=== PATIENT | female | born 1955 | race Caucasian/White ===

== ENCOUNTER 2018-06-24 10:40 | Outpatient (CLI) ==
[2013-12-31 18:29] VITALS: BMI 30.2
== END 2018-06-24 10:41 | disposition home or self-care (01) ==
LOC: LAB 10:40
PROVIDERS: ATTEND Nurse Practitioner Family
DX: E55.9 Vitamin D deficiency, unspecified (principal); M81.0 Age-related osteoporosis without current pathological fracture
CPT/HCPCS: 36415; 82306; 82310; 83735; 84100

== ENCOUNTER 2019-07-04 17:58 | Inpatient (IN) ==
--- NOTE | 2019-07-04 18:44 | ED.PDOC ---
General ED Provider: Dr. JONO SANTOS Chief Complaint: Altered Mental Status Stated Complaint: Altered mental status. Brought in by EMS. Hx given by family at scene patient was found in this altered state this afternoon. Was treated and released on 07/01 in the ER. At that time complained of headache back pain, tremors and states when she talked states did not know how to finish her sentences. Reported a recent fall without known injury. Onset of symptoms 06/23/19. Today patient would not answer her door and family broke in and found her in a state of being non verbal, minimally responsive. Assumes she has take prescribed meds (Prescribed Baclofen on . All meds noted. During exam-non verbal. kept eyes closed and Lt forearm flexed and hand tightly closed Fails to follow commands Time Seen by Physician: 18:20 (Advised of her arrival and symp) Mode of Arrival: Stretcher Information Source: Family and EMT Exam Limitations: Clinical condition and Altered mental status Primary Care Provider: Unknown Nursing and Triage Documentation Reviewed and Agree: Yes Does patient meet sepsis criteria?: No System Inflammatory Response Syndrome: Not Applicable Sepsis Protocol: For patient's 13 years and over: Temp is 96.8 and below OR 101 and greater Pulse >90 BPM Resp >20/minute Acutely Altered Mental Status Are patient's symptoms suggestive of a new infection, such as: -Pneumonia -Skin, Soft Tissue -Endocarditis -UTI -Bone, Joint Infection -Implantable Device -Acute Abdominal Infection -Wound Infection -Meningitis -Blood Stream Catheter Infection -Unknown Neurological Complaint Exam Altered Mental Status Complaint/Exam Current Mental Status: Unresponsiveness Last Known Well: 2 days Onset: Gradual Duration: 24 hrs-last seen well yesterday Symptoms Are: Still present Timing: Constant Initial Severity: Moderate Current Severity: Severe Eye Deviation Present: No Character: Reports Responsiveness and Lethargy Aggravating: Reports None Alleviating: Reports None Related History: Denies Similar episode Cardiac Risk Factors: Reports None CVA Risk Factors: Reports None Related Surgical History: Reports None Carotid Bruit Present: No Nystagmus Present: No Gag Reflex Present: No Meningeal Signs Positive: No Focal Weakness: Present None Focal Sensory Loss: Present None Gait: Unable [id number]: Abnormal right and Abnormal left Babinski Sign: Negative Right and Negative Left Signs of Injury: Present Normal findings Thrombolytics Considered: No Differential Diagnoses: Intracranial Bleed, Metabolic Disorder, Overdose, Medication reaction, Seizure, Post-Ictal, Sepsis and CVA Neurological Deficit Complaint/Exam Symptom Onset Unknown: Yes Symptom Onset Date: 07/04/19 Onset: Sudden Symptoms Are: Still present Timing: Constant Initial Severity: Moderate Current Severity: Moderate Location: Reports LUE Character: Reports Impaired speech Aggravating: Denies None, Fatigue, Stress, Hypertension and Exertion Alleviating: Reports None, Rest, OTC Meds, Heat and Ice Associated Signs and Symptoms: Reports Confusion and Responsiveness Related History: Denies Similar episode and Anticoagulant therapy CVA Risk Factors: Reports Hypertension SDH Risk Factors: Denies None, Male, Seizures, Elderly, Recent trauma, Anticoagulant use and Coagulopathy Related Surgical History: Reports None Carotid Bruit Present: No Meningeal Signs Positive: No Nystagmus Present: No Gag Reflex Present: No Signs of Trauma: No Review of Systems Review Of Systems Constitutional: Reports Weakness Eyes: Reports No symptoms Ears, Nose, Mouth, Throat: Reports No symptoms Respiratory: Reports No symptoms Cardiac: Reports No symptoms GI: Reports No symptoms : Reports No symptoms Musculoskeletal: Reports Back pain Skin: Reports No symptoms Neurological: Reports Other (altered loc) Endocrine: Reports No symptoms Hematologic/Lymphatic: Reports No symptoms All Other Systems: Reviewed and Negative [facility] Medical History (Updated 07/05/19 @ 12:08 by [email or web address]) Acute arthritis Anxiety Chronic pain disorder Dementia Depression HTN (hypertension), benign Migraine headache Previous back surgery TIA (transient ischemic attack) Tobacco dependence due to cigarettes Family History (Updated 07/05/19 @ 12:12 by [email or web address]) Mother Dementia, Onset Age: 78 Hypertension, Onset Age: 50 FATHER Unknown family medical history Social History (Updated 07/05/19 @ 12:26 by [email or web address]) Smoking and tobacco status: Current every day smoker Tobacco: How many years used: 40 Quit status: has quit before Smoking risk assessment performed: Yes Alcohol intake: former Substance use type: marijuana, opiates and other Details: has medical marijuana rx Lives independently: Yes Number of children: 1 Number of grandchildren: 2 Current occupational status: disabled Female Reproductive History Menstrual Hx Hysterectomy: No Hx Tubal Ligation: No Physical Exam Physical Exam Appearance: Reports Ill-appearing Ill-appearing: Moderate Pain Distress: None Eyes: Reports SHORTY, EOMI and Conjunctiva clear ENT: Reports Ears normal Neck: Supple Respiratory: Reports Airway patent, Breath sounds clear and Breath sounds equal Cardiovascular: Reports RRR, Pulses normal and No murmur GI/: Reports Soft, Tender (suprapubic region ) and Bowel sounds hypoactive Musculoskeletal: Reports ROM intact Skin: Reports Warm and Dry Neurological: Reports Motor intact (moves upper and lower extremities spontaneously-keeps lt arm flexed/lt hand clenched no clonus ) and Alert to pain NIH Stroke Scale 1a. Level of Consciousness: 2=Not alert, requires repeated stimulation or painful stimulation 1b. Level of Consciousness Questions: 2=Answers correctly to neither 1c. Level of Consciousness Commands: 2=Performs neither correctly 2. Best Gaze: 1=Partial gaze palsy, no forced gaze palsy 4. Facial Palsy: 0=Normal 5a. Motor Left Arm: 1=Drifts before 10 seconds arm, 5 seconds leg 5b. Motor Right Arm: 0=No drift,arm holds 90 degrees for 10 sec., leg 30 degrees for 5 sec. 6b. Motor Right Le=No drift,arm holds 90 degrees for 10 sec., leg 30 degrees for 5 sec. 8. Sensory: 1=Mild to moderate sensory loss 9. Best Language: 3=Mute, only sounds 10. Dysarthria: 2=Severe, cannot be understood 11. Extincion and Inattention: 2=Profound semi-inattention Stroke Scale Total: 16 Interpretation Radiology Interpretation Radiology Interpretation By: Radiologist Exam Interpreted: CT Scan (Head-NO acute abnormalities) Physician Notification Case Discussed Physician Notified: Dr Rae-discussed case- accepted transfer of care management Time of Notification: 19:11 Critical Care Note Critical Care Note Total Time (mins): 0 Course Course Hematology/Chemistry: 07/05/19 04:15 07/05/19 04:15 Orders, Labs, Meds: Lab Review 07/04/19 07/04/19 07/04/19 18:37 18:57 18:57 WBC 11.81 H RBC 4.55 Hgb 13.7 Hct 42.1 MCV 92.5 MCH 30.1 MCHC 32.5 RDW Coeff of Alyssa 13.7 Plt Count 282 Immature Gran % (Auto) 0.3 Neut % (Auto) 83.8 H Lymph % (Auto) 9.[address] [place] % (Auto) 5.7 Eos % (Auto) 0.2 Baso % (Auto) 0.2 Immature Gran # (Auto) 0.0 Neut # (Auto) 9.9 H Lymph # (Auto) 1.2 [place] # (Auto) 0.7 Eos # (Auto) 0.0 Baso # (Auto) 0.0 Puncture Site O2 Saturation ABG pH ABG pCO2 ABG pO2 ABG HCO3 ABG Total CO2 ABG Base Excess Rauedl Test FiO2 % Sodium 142.6 Potassium 3.75 Chloride 101.4 Carbon Dioxide 29.8 Anion Gap 15.15 BUN 19.1 H Creatinine 0.74 Estimated GFR (MDRD) 79.00 BUN/Creatinine Ratio 25.81 Glucose 117.9 H Calcium 9.91 Total Bilirubin 0.47 AST 46.5 H ALT 17.7 Alkaline Phosphatase 44.2 L Ammonia Total Protein 8.04 Albumin 4.82 Globulin 3.22 Albumin/Globulin Ratio 1.49 Urine Color Urine Clarity Urine pH Ur Specific [place] Urine Protein Urine Glucose (UA) Urine Ketones Urine Blood Urine Nitrite Urine Bilirubin Urine Urobilinogen Ur Leukocyte Esterase Urine Microscopic RBC Urine Microscopic WBC Ur Squamous Epith Cells Ur Transition Epith Cell Hyaline Casts Urine Mucus Urine Opiates Screen Ur Oxycodone Screen Urine Methadone Screen Ur Propoxyphene Screen Ur Barbiturates Screen U Tricyclic Antidepress Ur Phencyclidine Scrn Ur Amphetamine Screen U Methamphetamines Scrn U Benzodiazepines Scrn Urine Cocaine Screen U Cannabinoids Screen Influ A Molecular Assay Negative by naat Influ B Molecular Assay Negative by naat 07/04/19 07/04/19 07/04/19 18:57 19:30 19:30 WBC RBC Hgb Hct MCV MCH MCHC RDW Coeff of Alyssa Plt Count Immature Gran % (Auto) Neut % (Auto) Lymph % (Auto) [place] % (Auto) Eos % (Auto) Baso % (Auto) Immature Gran # (Auto) Neut # (Auto) Lymph # (Auto) [place] # (Auto) Eos # (Auto) Baso # (Auto) Puncture Site O2 Saturation ABG pH ABG pCO2 ABG pO2 ABG HCO3 ABG Total CO2 ABG Base Excess Rauedl Test FiO2 % Sodium Potassium Chloride Carbon Dioxide Anion Gap BUN Creatinine Estimated GFR (MDRD) BUN/Creatinine Ratio Glucose Calcium Total Bilirubin AST ALT Alkaline Phosphatase Ammonia < 8.7 L Total Protein Albumin Globulin Albumin/Globulin Ratio Urine Color Yellow Urine Clarity Clear Urine pH 6.0 Ur Specific [place] 1.020 Urine Protein Negative Urine Glucose (UA) Negative Urine Ketones Trace H Urine Blood Trace-intact H Urine Nitrite Negative Urine Bilirubin Negative Urine Urobilinogen 0.2 Ur Leukocyte Esterase Negative Urine Microscopic RBC 0-2 Urine Microscopic WBC 2-5 Ur Squamous Epith Cells Not present Ur Transition Epith Cell 0-2 Hyaline Casts 0-2 Urine Mucus Trace Urine Opiates Screen Positive H Ur Oxycodone Screen Negative Urine Methadone Screen Negative Ur Propoxyphene Screen Negative Ur Barbiturates Screen Negative U Tricyclic Antidepress Positive H Ur Phencyclidine Scrn Negative Ur Amphetamine Screen Negative U Methamphetamines Scrn Negative U Benzodiazepines Scrn Positive H Urine Cocaine Screen Negative U Cannabinoids Screen Positive H Influ A Molecular Assay Influ B Molecular Assay 07/04/19 19:30 WBC RBC Hgb Hct MCV MCH MCHC RDW Coeff of Alyssa Plt Count Immature Gran % (Auto) Neut % (Auto) Lymph % (Auto) [place] % (Auto) Eos % (Auto) Baso % (Auto) Immature Gran # (Auto) Neut # (Auto) Lymph # (Auto) [place] # (Auto) Eos # (Auto) Baso # (Auto) Puncture Site Rb O2 Saturation 97.0 ABG pH 7.442 ABG pCO2 36.4 ABG pO2 82.0 L ABG HCO3 24.8 ABG Total CO2 26 ABG Base Excess 1 Raudel Test + FiO2 % 21.0 Sodium Potassium Chloride Carbon Dioxide Anion Gap BUN Creatinine Estimated GFR (MDRD) BUN/Creatinine Ratio Glucose Calcium Total Bilirubin AST ALT Alkaline Phosphatase Ammonia Total Protein Albumin Globulin Albumin/Globulin Ratio Urine Color Urine Clarity Urine pH Ur Specific [place] Urine Protein Urine Glucose (UA) Urine Ketones Urine Blood Urine Nitrite Urine Bilirubin Urine Urobilinogen Ur Leukocyte Esterase Urine Microscopic RBC Urine Microscopic WBC Ur Squamous Epith Cells Ur Transition Epith Cell Hyaline Casts Urine Mucus Urine Opiates Screen Ur Oxycodone Screen Urine Methadone Screen Ur Propoxyphene Screen Ur Barbiturates Screen U Tricyclic Antidepress Ur Phencyclidine Scrn Ur Amphetamine Screen U Methamphetamines Scrn U Benzodiazepines Scrn Urine Cocaine Screen U Cannabinoids Screen Influ A Molecular Assay Influ B Molecular Assay Orders Category Date Time Status ADMIT PATIENT INPATIENT .TO [facility] (MONITORED BED) ADMISSION 07/04/19 20:22 Active ABG DRAW REQUEST Stat CARDIO 07/04/19 20:14 Completed EKG-(ED ONLY) Stat CARDIO 07/04/19 18:31 Completed ACTIVITY .Complete BR CARE 07/04/19 20:23 Active GIVE HS SNACK 2100 CARE 07/04/19 20:23 Active INTAKE & OUTPUT Q8HR CARE 07/04/19 20:23 Active NEUROLOGICAL CHECKS Q2HR CARE 07/04/19 20:23 Active TELEMETRY MONITORING TELE CARE 07/04/19 20:22 Active VITAL SIGNS Q2HR CARE 07/04/19 20:23 Active HS SNACK DIETARY 07/04/19 Dinner Ordered ED IV/MEDIPORT/POWERPORT .ONCE EMERGENCY 07/04/19 20:21 Active IV [ED IV/MEDIPORT/POWERPORT] .ONCE EMERGENCY 07/04/19 18:31 Active ABG Stat LAB 07/04/19 19:30 Completed AMMONIA Stat LAB 07/04/19 18:57 Completed BLOOD CULTURE (ED ONLY) Stat LAB 07/04/19 19:12 Received CBC W/ AUTO DIFF DAILY@0600 LAB 07/05/19 04:15 Completed CBC W/ AUTO DIFF DAILY@0600 LAB 07/06/19 06:00 Ordered CBC W/ AUTO DIFF Stat LAB 07/04/19 18:57 Completed CMP [COMPREHENSIVE METABOLIC PANEL] Stat LAB 07/04/19 18:57 Completed COMPREHENSIVE METABOLIC PANEL DAILY@0600 LAB 07/05/19 04:15 Completed COMPREHENSIVE METABOLIC PANEL DAILY@0600 LAB 07/06/19 06:00 Ordered FLU A & B MOLECULAR [FLU A/B MOLECULAR] Stat LAB 07/04/19 18:37 Completed UA [URINALYSIS C & S IF INDICATED] Stat LAB 07/04/19 19:30 Completed URINE DRUG SCREEN (RAPID FOR ED) [DRUG SCREEN, URINE, LAB 07/04/19 19:30 Completed RAPID] Stat 0.9 % Sodium Chloride [Saline Flush] MEDS 07/04/19 20:21 Active 1 syr IVF PRN PRN Divalproex Sodium [Depakote] MEDS 07/04/19 21:00 Discontinued 250 mg PO BID Donepezil HCl [Aricept] MEDS 07/05/19 09:00 Discontinued 10 mg PO DAILY Enoxaparin Sodium [Lovenox] MEDS 07/05/19 09:00 Discontinued 30 mg SUBCUT DAILY Omeprazole [Prilosec] MEDS 07/05/19 09:00 Discontinued 20 mg PO DAILY Prazosin HCl [Minipress] MEDS 07/04/19 21:00 Discontinued 5 mg PO BEDTIME Sertraline HCl [Zoloft] MEDS 07/05/19 09:00 Discontinued 200 mg PO DAILY Sodium Chloride 0.9% [Sodium Chloride] 1,000 ml MEDS 07/04/19 20:21 Discontinued IV 100 mls/hr Sodium Chloride 0.9% [Sodium Chloride] 1,000 ml MEDS 07/04/19 19:13 Discontinued IV ONCE RESUSCITATION STATUS Routine OTHERS 07/04/19 20:23 Ordered CHEST, 1V AP ONLY Stat RADS 07/04/19 18:[address] HEAD W/O CONTRAST Stat RADS 07/04/19 18:31 Completed Medications Generic Name Dose Route Start Last Admin Trade Name Freq PRN Reason Stop Dose Admin Acetaminophen 650 mg 07/05/19 16:44 07/05/19 17:05 Tylenol PO 650 mg Q6H PRN Administration FEVER > 100.5 Amitriptyline HCl 100 mg 07/05/19 21:00 Elavil PO BEDTIME [facility] Docusate Sodium 100 mg 07/05/19 16:30 07/05/19 17:05 Colace PO 100 mg BID ERNA Administration Duloxetine HCl 60 mg 07/06/19 09:00 Cymbalta PO DAILY [facility] Enoxaparin Sodium 40 mg 07/05/19 17:00 07/05/19 17:09 Lovenox SUBCUT Not Given DAILY [facility] Ergocalciferol 50,000 unit 07/10/19 09:00 Drisdol PO WEEKLY [facility] Hydrochlorothiazide 25 mg 07/06/19 09:00 Hydrochlorothiazide PO DAILY [facility] Potassium Chloride/Sodium Chloride 1,000 mls @ 83 mls/hr 07/05/19 08:00 07/05/19 07:35 Sodium Chloride 0.9%-Kcl 20 Meq IV 83 mls/hr .Q12H3M ERNA Administration Famotidine 20 mg/ Sodium 52 mls @ 100 mls/hr 07/05/19 17:00 07/05/19 17:06 Chloride IV 100 mls/hr Q12HR ERNA Administration Labetalol HCl 10 mg 07/05/19 15:42 Trandate IVP Q6H PRN Blood Pressure Linaclotide 145 mcg 07/06/19 08:00 Linzess PO 0800 ERNA Lisinopril 10 mg 07/06/19 09:00 Zestril PO DAILY [facility] Morphine Sulfate 1 mg 07/04/19 23:23 04/05/20 04:48 Morphine 2 Mg/Ml Syringe IVP 1 mg Q4H PRN Administration Pain Nicotine 1 patch 07/05/19 16:30 07/05/19 17:06 Nicoderm 14 Mg TD 1 patch DAILY ERNA Administration Sodium Chloride 1 syr 07/04/19 20:21 Saline Flush IVF PRN PRN To flush IV Sumatriptan Succinate 100 mg 07/05/19 11:21 Imitrex PO DAILY PRN HEADACHE Tizanidine HCl 4 mg 07/05/19 13:08 Zanaflex PO Q8H PRN MUSCLE SPASMS Discontinued Medications Generic Name Dose Route Start Last Admin Trade Name Freq PRN Reason Stop Dose Admin Diazepam 10 mg 07/05/19 05:00 07/05/19 05:07 Valium PO 10 mg Q8HR ERNA Administration Diazepam 10 mg 07/05/19 13:00 Valium PO Q8HR ERNA Divalproex Sodium 250 mg 07/04/19 21:00 07/05/19 11:25 Depakote PO Not Given BID [facility] Donepezil HCl 10 mg 07/05/19 09:00 07/05/19 11:24 Aricept PO Not Given DAILY [facility] Enoxaparin Sodium 30 mg 07/05/19 09:00 07/05/19 17:08 Lovenox SUBCUT Not Given DAILY [facility] Sodium Chloride 1,000 mls @ 125 mls/hr 07/04/19 19:13 07/04/19 21:46 Sodium Chloride IV 07/05/19 03:12 Not Given ONCE ONE Sodium Chloride 1,000 mls @ 100 mls/hr 07/04/19 20:21 07/04/19 21:47 Sodium Chloride IV 07/05/19 06:20 100 mls/hr .Q10H STA Administration Omeprazole 20 mg 07/05/19 09:00 07/05/19 17:09 Prilosec PO Not Given DAILY [facility] Prazosin HCl 5 mg 07/04/19 21:00 07/04/19 21:55 Minipress PO Not Given BEDTIME ERNA Sertraline HCl 200 mg 07/05/19 09:00 07/05/19 11:25 Zoloft PO Not Given DAILY ERNA Vital Signs: Temp Pulse Resp BP Pulse Ox 07/04/19 17:59 98.3 F 105 H 20 156/92 H 98 Discharge Plan Discharge Patient Disposition: ADMITTED INPATIENT Discharge Problem: Encephalopathy ED Provider: JONO SANTOS Condition: Fair Discharge Date/Time: 07/04/19 21:15
[2019-07-04 19:03] LABS: HEMATOCRIT 42.1 % (37.0-47.0)
--- NOTE | 2019-07-04 19:03 | CT ---
EXAM: CT head without contrast HISTORY: Altered mental status COMPARISON: None TECHNIQUE: Serial axial images of the brain were obtained from the skull base to the vertex without IV contrast. FINDINGS: The ventricles, cisterns and sulci are normal. The crespo-white matter junction is well elizabeth ntained. No midline shift or mass is identified. There is no abnormal intra or extra-axial fluid co llection. The paranasal sinuses and mastoid air cells are clear. The osseous calvarium is intact. IMPRESSION: No acute intracranial abnormality or hemorrhage.
[2019-07-04] MEDS ORDERED: SODIUM CHLORIDE 1,000 ML IV ONE (19:13)
--- NOTE | 2019-07-04 19:14 | DI ---
Exam: Single view of the chest. Comparison: CT chest performed 04/06/2015. Reason for exam: Altered mental status. FINDINGS: Developing consolidation in the left lower lobe. Cardiac silhouette is unchanged and mild ly prominent in size. No pneumothorax is seen. The right lung is clear. Impression: Imaging findings are consistent with left lower lobe atelectasis/pneumonia. If clinical concern exis ts, further evaluation may be performed. Nonspecific opacity is seen in the left medial lung base of unknown etiology. CT imaging of the ches t could be performed for further characterization.
[2019-07-04] MEDS ORDERED: SODIUM CHLORIDE 1,000 ML IV STA (20:21)
[2019-07-04] MEDS: MINIPRESS PO SCH ×2 (21:45→21:55)
[2019-07-04] MEDS: DEPAKOTE PO SCH ×2 (21:46→21:56)
[2019-07-04 22:01] VITALS: BMI 28.0
[2019-07-04] MEDS: MORPHINE 2 MG/ML SYRINGE IVP PRN (23:50)
[2019-07-05 04:23] LABS: HEMATOCRIT 39.4 % (37.0-47.0)
[2019-07-05] MEDS: MORPHINE 2 MG/ML SYRINGE IVP PRN (04:48)
[2019-07-05] MEDS ORDERED: VALIUM PO SCH ×2 (05:00→13:00)
[2019-07-05] MEDS: SODIUM CHLORIDE 0.9%-KCL 20 MEQ 1,000 ML IV SCH ×2 (07:35→21:51)
[2019-07-05] MEDS ORDERED: LOVENOX SUBCUT SCH (09:00)
[2019-07-05] MEDS ORDERED: ARICEPT PO SCH (09:00)
[2019-07-05] MEDS ORDERED: ZOLOFT PO SCH (09:00)
[2019-07-05] MEDS ORDERED: ASPIRIN EC PO SCH (09:00)
[2019-07-05] MEDS ORDERED: LINZESS PO SCH (09:00)
[2019-07-05] MEDS ORDERED: PRILOSEC PO SCH (09:00)
--- NOTE | 2019-07-05 10:05 | CT ---
EXAM: CT of the chest with intravenous contrast CT of the abdomen and pelvis with intravenous contrast COMPARISON: Chest radiograph 07/04/2019. CT chest 04/06/2015. CT of the abdomen and pelvis 014. HISTORY: Abdominal pain. Abnormal chest radiograph. TECHNIQUE: CT images of the chest, abdomen and pelvis were obtained following the administration of intravenous contrast agent. The oral contrast was not administered. Axial reconstructions with sagi ttal and coronal reformats were provided. Submitted images are mildly limited by patient motion ladonna fact. FINDINGS: CT chest: Heterogeneous enhancement of the thyroid gland with several low attenuation nodules measuring up to 0 .8 cm in size within the right and left lobes of the thyroid with asymmetric enlargement of the of ri ght lobe suggesting multinodular goiter. There are vascular calcifications involving the thoracic ao rta and its major branches without evidence of an aneurysm. Heart size is within normal limits witho ut a pericardial effusion. Scattered coronary artery calcifications and aortic valvular calcificatio ns. There are sub-centimeter axillary and mediastinal lymph nodes which are nonpathologic by size cr iteria. There is a hiatal hernia containing a portion of the stomach measuring 6.0 x 5.5 x 5.2 cm, a ccounting for the abnormality noted on recent chest radiographs, medially within the lung base. There are mild emphysematous changes of the lungs bilaterally. No focal consolidation within the lef t lung. No pleural effusion or pneumothorax. Mild degenerative changes of the thoracic spine with d extrocurvature of the spine. Suspected hemangiomas at multiple levels throughout the thoracic spine. Degenerative change of the shoulders bilaterally with vacuum phenomenon at the left glenohumeral edilson int. CT of the abdomen and pelvis: The liver, spleen, pancreas, gallbladder and adrenal glands are unremarkable appearance. 1.3 x 0.9 c m low attenuation lesion peripherally within the mid right kidney abutting the cortex which may repre sent a cyst. Limited assessment this region on previous noncontrasted CT 06/04/2013 though this was also likely present at that time. Thinning and scarring of the overlying cortex. 1.1 cm region of l ow attenuation overlying the anterolateral cortex of the right kidney just anterior to that level not clearly seen on the previous study which could represent some fluid in the perinephric space or smal l exophytic cyst. There is some ill-defined fluid along the anterior margin of the left kidney. Min imal perinephric stranding bilaterally. No radiopaque renal calculus, hydronephrosis or hydroureter. Moderate distension of the urinary bladder. There are calcifications with tortuosity of the abdominal aorta most pronounced distally. The abdomi nal aorta measures up to 2.1 cm in diameter proximally. No retroperitoneal hematoma. No pathologica lly enlarged intra-abdominal or intrapelvic lymph nodes. There is limited assessment of the bowel due to lack of enteric contrast. Scattered air-fluid levels . Minimal distension of loops of bowel in the upper abdomen which could be related enteritis or ileu s without a discrete transition point to suggest bowel obstruction at this time. There is a moderate amount of stool within the colon. Small tubular structure in a retrocecal location suggest a normal caliber appendix without definite evidence of acute appendicitis. No free intra-abdominal air or fl uid. Levocurvature of the spine with marked multilevel degenerative change most pronounced L2/L3. [place] spected benign hemangiomas throughout the lumbar spine. Postoperative change with attempted fusion a t the right sacroiliac joint. Foci of sclerosis within the femoral heads bilaterally may represent s mall regions of osteonecrosis without collapse. The final report was faxed to the radiology department and emergency room at 9:56 a.m. on 07/05/2019. IMPRESSION: CT chest: 1. Moderate sized hiatal hernia containing a portion of the stomach and accounting for the abnormali ty on recent chest radiographs. 2. No focal consolidation. 3. Atherosclerotic vascular disease. Degenerative changes of the spine. 4. Mild emphysematous changes. 5. Multinodular goiter. CT of the abdomen and pelvis: 1. Scattered air-fluid levels with minimally distended loops of bowel in the upper abdomen which cou ld be related mild enteritis or ileus. No transition point to suggest bowel obstruction at this time . Correlate clinically. Moderate amount of well-formed stool within the colon. 2. Atherosclerotic vascular disease. 3. Minimal perinephric stranding bilaterally with some ill-defined fluid adjacent to the kidneys. C ystic change and cortical scarring laterally within the mid right kidney. No hydronephrosis or hydro ureter. Moderate distension of the urinary bladder. 4. Multifocal degenerative changes as described. Postoperative change of the right sacroiliac joint . Suspected small foci of osteonecrosis within the femoral heads bilaterally without articular surfa ce collapse.
[2019-07-05] MEDS ORDERED: IMITREX PO PRN (11:21)
[2019-07-05] MEDS: DEPAKOTE PO SCH (11:25)
--- NOTE | 2019-07-05 12:28 | PCM ---
Chief Complaint Chief Complaint: encephalopathy History of Present Illness History of Present Illness: pts hx of present illness gathered from the record and from interviews with her sister, Sadie, and her son, Zeyad, over the phone. Per ED documents pt was seen 3 days prior to this admission in [place] ED and treated and released for complaint of back pain. diagnosed with back spasms which were chronic. given rx for baclofen and discharged. Records reveal pt has hx of HTN, anxiety, depression, chronic pain, and migraines. Record shows previous psych medications. list provided by family do not continue to list these meds currently. Pt brought back to ED on yesterday, 07/03 with complaint of encephalopathy after being found down, incontinent of urine, in her house by her son and dtr in law. no past history of seizure disorder. pt speaking incoherently and couldn't give any information about events prior to being found down inside her home. Rx for baclofen TIS #30 obtained by son on Saturday at noon. pt found down around 1600hrs and 6 of the baclofen tablets had already been taken. Pt brought to ED. Head CT wo negative for acute process. CXR with non specific opacity left mid lung base unknown etiology, LLL consolidation atelectasis vs pna. admitted to hospitalist service with encephalopathy and abnormal chest xray for futher work up and care. spoke with pts sister, Sadie, who stated she was trying to get pt to come to hospital for 3 days due to her complaints over the phone of not "feeling good and stomach pain". that is why they came to ED 3 days ago. sister says pt has anxiety and depression and has told her that she was told by one of her providers that she has post traumatic stress. she says pt expressed wanting to commit suicide 4 or 5 years ago and was in [facility] for a few days. she was released on medication. she was to follow up to continue group therapy but only went back once or twice saying she didn't believe she needed counseling/therapy. sister says pt has "always been so sharp, but, about 3 or more months ago she noted pt having increasing difficulty with her memory and ability to complete full sentences. she states her sister has a large binder that she writes everything down in. she makes detailed list of every thing like her grocery list. she has become almost reclusive and has been afraid to drive. she has been driving her to some of her appointments over the past 1 - 2 years due to this. when she takes pt to the doctor she doesn't go in with pt to see the doctor just waits outside. she is not sure what pt is told or medications she has been prescribed. pt was still taking care of all of this herself, even though, they knew she was having memory issues. she says pt (her sister) has always worried that she will "get alzheimers because that is what our mother from. she watched how she went down and this has worried and scarred her every since". she says pt took aricept for awhile because she was convinced she had dementia but she has stopped taking it. she is not sure how long ago. she states pt has had migraines most of her adult life and has previously gone to pain management for about 10 years. she later was seen at pain management for her chronic back problems after back surgery. she states pt is "dependent" on her pain meds and left her previous pharmacy because they wouldn't refill her pain meds early. she states [facility] [place]; left went to [facility] in [place]; was to see another doctor this past saturday in [facility] but her appointment was cancelled. she said pt was told that they couldnt take her as new patient due to her pain med history.. pt has previousl smoked marijuana but now has a medial marijuana prescription card for about 6 weeks. she thinks. when I spoke to pts son he stated he knew nothing of the abdominal pain, but, his mother had been saying she thought she had a stroke. he says she has hx of TIA in the past and is consumed with the thought that she is having a stroke. he says she complains of "thinking she has had a stroke all the time, many times a week" but has no real symptoms. son is aware of pts being in [place] and states she was released on medications. he says she "quickly came off of them", he is not sure if doctor had her stop or if she stopped them on her own. son states pt memory issues have been going on for "years". he feels that she tries to keep him and other family members from knowing she is having problems by trying to write everything down. son states pt is dependent on her pain meds for her headaches and for her back . she is disabled related to her back problems. he also states she is often constipated and takes different meds for this. she is often not able to sleep at night and takes medications for that. he states she sleeps a lot during the day and is up all night. she often calls to ask if his sons are coming to her house to wait for the bus, and it will be night and not morning, but she is not aware of the time. sister and son both deny any current/recent history of travel, diarrhea, chills , fever, cough, chest pain, or shortness of breath. Review of record shows that pt had US aorta 05/15/19 for pulsatile mass in abdomen with visualized portion of aorta of normal caliber. Not a good study. Prev CT chest 04/06/15 mild bilateral lower lobe thickening; small hiatal hernia. Review of Systems Constitutional: Reports other (unable to obtain due to pts mental status) Allergies Allergies Allergy/AdvReac Type Severity Reaction Status Date / Time fluoxetine HCl [From Prozac] AdvReac Verified 07/04/19 18:32 ketorolac [From Toradol] AdvReac Verified 07/04/19 18:32 promethazine HCl AdvReac Verified 07/04/19 18:32 [From Phenergan] trazodone AdvReac Verified 07/04/19 18:32 [facility] Medical History (Updated 07/05/19 @ 12:08 by New KCB[employer] MEASUREMENT COORDINATOR) Acute arthritis Anxiety Chronic pain disorder Dementia Depression HTN (hypertension), benign Migraine headache Previous back surgery TIA (transient ischemic attack) Tobacco dependence due to cigarettes Surgical History (Updated 07/05/19 @ 12:08 by New [employer]CB[employer] MEASUREMENT COORDINATOR) History of foot surgery Family History (Updated 07/05/19 @ 12:12 by New KCB[employer] MEASUREMENT COORDINATOR) Mother Dementia, Onset Age: 78 Hypertension, Onset Age: 50 FATHER Unknown family medical history Social History (Updated 07/05/19 @ 12:26 by New KCB[employer] MEASUREMENT COORDINATOR) Smoking and tobacco status: Current every day smoker Tobacco: How many years used: 40 Quit status: has quit before Smoking risk assessment performed: Yes Alcohol intake: former Substance use type: marijuana, opiates and other Details: has medical marijuana rx Lives independently: Yes Number of children: 1 Number of grandchildren: 2 Current occupational status: disabled Medications Medications: Medications Generic Name Dose Route Start Last Admin Trade Name Freq PRN Reason Stop Dose Admin Amitriptyline HCl 100 mg 07/05/19 21:00 Elavil PO BEDTIME COUNT INCLUDES [facility] Duloxetine HCl 60 mg 07/06/19 09:00 Cymbalta PO DAILY COUNT INCLUDES THE [facility] Enoxaparin Sodium 30 mg 07/05/19 09:00 Lovenox SUBCUT DAILY COUNT INCLUDES THE [facility] Ergocalciferol 50,000 unit 07/10/19 09:00 Drisdol PO WEEKLY COUNT INCLUDES THE [facility] Hydrochlorothiazide 25 mg 07/06/19 09:00 Hydrochlorothiazide PO DAILY COUNT INCLUDES THE [facility] Potassium Chloride/Sodium Chloride 1,000 mls @ 83 mls/hr 07/05/19 08:00 07/05/19 07:35 Sodium Chloride 0.9%-Kcl 20 Meq IV 83 mls/hr .Q12H3M ERNA Administration Linaclotide 145 mcg 07/05/19 09:00 Linzess PO DAILY COUNT INCLUDES THE [facility] Lisinopril 10 mg 07/06/19 09:00 Zestril PO DAILY COUNT INCLUDES THE [facility] Morphine Sulfate 1 mg 07/04/19 23:23 07/05/19 04:48 Morphine 2 Mg/Ml Syringe IVP 1 mg Q4H PRN Administration Pain Non-Formulary Medication 4 mg 07/05/19 11:21 Tizanidine PO Q8H PRN MUSCLE SPASMS Omeprazole 20 mg 07/05/19 09:00 Prilosec PO DAILY COUNT INCLUDES THE [facility] Sodium Chloride 1 syr 07/04/19 20:21 Saline Flush IVF PRN PRN To flush IV Sumatriptan Succinate 100 mg 07/05/19 11:21 Imitrex PO DAILY PRN HEADACHE Body Composition Height: 5 ft 3 in Weight: 158 lb 8.198 oz Body Mass Index (BMI): 28.0 Vital Signs Temperature: 98.3 F Pulse Rate: 95 Respiratory Rate: 19 Blood Pressure: 169/91 O2 Sat by Pulse Oximetry: 100 Physical Examination Appearance: Reports Well-appearing and Well-nourished Eyes: Reports SHORTY, EOMI and Conjunctiva clear ENT: Reports Oropharynx normal (dentures in place) and Dry mucosa Neck: Supple Respiratory: Reports Airway patent, Breath sounds clear, Breath sounds equal and Respirations nonlabored Cardiovascular: Reports RRR and Pulses normal GI/: Reports Soft, Bowel sounds normal and Tender (diffuse tenderness but more exquisite on left lower quadrant; no rebound) Musculoskeletal: Reports ROM intact and No edema Skin: Reports Warm, Dry and Normal color Neurological: Reports Sensation intact, Motor intact (moving all extremties well against gravity voluntarily) and Alert (appears confused with some question;probs with word finding/expressing herself) Psychiatric: Reports Anxious and Depressed Lab/Tests/Diagnostic Imaging Lab/Tests/Diagnostic Imaging: Lab Review 07/04/19 07/04/19 07/04/19 18:37 18:57 18:57 WBC 11.81 H RBC 4.55 Hgb 13.7 Hct 42.1 MCV 92.5 MCH 30.1 MCHC 32.5 RDW Coeff of Alyssa 13.7 Plt Count 282 Immature Gran % (Auto) 0.3 Neut % (Auto) 83.8 H Lymph % (Auto) 9.8 L [place] % (Auto) 5.7 Eos % (Auto) 0.2 Baso % (Auto) 0.2 Immature Gran # (Auto) 0.0 Neut # (Auto) 9.9 H Lymph # (Auto) 1.2 [place] # (Auto) 0.7 Eos # (Auto) 0.0 Baso # (Auto) 0.0 Puncture Site O2 Saturation ABG pH ABG pCO2 ABG pO2 ABG HCO3 ABG Total CO2 ABG Base Excess Raudel Test FiO2 % Sodium 142.6 Potassium 3.75 Chloride 101.4 Carbon Dioxide 29.8 Anion Gap 15.15 BUN 19.1 H Creatinine 0.74 Estimated GFR (MDRD) 79.00 BUN/Creatinine Ratio 25.81 Glucose 117.9 H Calcium 9.91 Total Bilirubin 0.47 AST 46.5 H ALT 17.7 Alkaline Phosphatase 44.2 L Ammonia Total Protein 8.04 Albumin 4.82 Globulin 3.22 Albumin/Globulin Ratio 1.49 Urine Color Urine Clarity Urine pH Ur Specific [place] Urine Protein Urine Glucose (UA) Urine Ketones Urine Blood Urine Nitrite Urine Bilirubin Urine Urobilinogen Ur Leukocyte Esterase Urine Microscopic RBC Urine Microscopic WBC Ur Squamous Epith Cells Ur Transition Epith Cell Hyaline Casts Urine Mucus Urine Opiates Screen Ur Oxycodone Screen Urine Methadone Screen Ur Propoxyphene Screen Ur Barbiturates Screen U Tricyclic Antidepress Ur Phencyclidine Scrn Ur Amphetamine Screen U Methamphetamines Scrn U Benzodiazepines Scrn Urine Cocaine Screen U Cannabinoids Screen Influ A Molecular Assay Negative by naat Influ B Molecular Assay Negative by naat 07/04/19 07/04/19 07/04/19 18:57 19:30 19:30 WBC RBC Hgb Hct MCV MCH MCHC RDW Coeff of Alyssa Plt Count Immature Gran % (Auto) Neut % (Auto) Lymph % (Auto) [place] % (Auto) Eos % (Auto) Baso % (Auto) Immature Gran # (Auto) Neut # (Auto) Lymph # (Auto) [place] # (Auto) Eos # (Auto) Baso # (Auto) Puncture Site O2 Saturation ABG pH ABG pCO2 ABG pO2 ABG HCO3 ABG Total CO2 ABG Base Excess R[place]el Test FiO2 % Sodium Potassium Chloride Carbon Dioxide Anion Gap BUN Creatinine Estimated GFR (MDRD) BUN/Creatinine Ratio Glucose Calcium Total Bilirubin AST ALT Alkaline Phosphatase Ammonia < 8.7 L Total Protein Albumin Globulin Albumin/Globulin Ratio Urine Color Yellow Urine Clarity Clear Urine pH 6.0 Ur Specific [place] 1.020 Urine Protein Negative Urine Glucose (UA) Negative Urine Ketones Trace H Urine Blood Trace-intact H Urine Nitrite Negative Urine Bilirubin Negative Urine Urobilinogen 0.2 Ur Leukocyte Esterase Negative Urine Microscopic RBC 0-2 Urine Microscopic WBC 2-5 Ur Squamous Epith Cells Not present Ur Transition Epith Cell 0-2 Hyaline Casts 0-2 Urine Mucus Trace Urine Opiates Screen Positive H Ur Oxycodone Screen Negative Urine Methadone Screen Negative Ur Propoxyphene Screen Negative Ur Barbiturates Screen Negative U Tricyclic Antidepress Positive H Ur Phencyclidine Scrn Negative Ur Amphetamine Screen Negative U Methamphetamines Scrn Negative U Benzodiazepines Scrn Positive H Urine Cocaine Screen Negative U Cannabinoids Screen Positive H Influ A Molecular Assay Influ B Molecular Assay 07/04/19 07/05/19 07/05/19 19:30 04:15 04:15 WBC 10.88 H RBC 4.24 Hgb 12.6 Hct 39.4 MCV 92.9 MCH 29.7 MCHC 32.0 RDW Coeff of Alyssa 13.8 Plt Count 274 Immature Gran % (Auto) 0.4 Neut % (Auto) 81.2 H Lymph % (Auto) 12.1 [place] % (Auto) 5.8 Eos % (Auto) 0.1 Baso % (Auto) 0.4 Immature Gran # (Auto) 0.0 Neut # (Auto) 8.8 H Lymph # (Auto) 1.3 [place] # (Auto) 0.6 Eos # (Auto) 0.0 Baso # (Auto) 0.0 Puncture Site Rb O2 Saturation 97.0 ABG pH 7.442 ABG pCO2 36.4 ABG pO2 82.0 L ABG HCO3 24.8 ABG Total CO2 26 ABG Base Excess 1 Raudel Test + FiO2 % 21.0 Sodium 141.8 Potassium 3.31 L Chloride 103.9 Carbon Dioxide 28.5 Anion Gap 12.71 BUN 22.0 H Creatinine 0.71 Estimated GFR (MDRD) 83.00 BUN/Creatinine Ratio 30.98 Glucose 105.2 Calcium 9.37 Total Bilirubin 0.48 AST 52.0 H ALT 18.8 Alkaline Phosphatase 37.2 L Ammonia Total Protein 7.39 Albumin 4.44 Globulin 2.95 Albumin/Globulin Ratio 1.50 Urine Color Urine Clarity Urine pH Ur Specific [place] Urine Protein Urine Glucose (UA) Urine Ketones Urine Blood Urine Nitrite Urine Bilirubin Urine Urobilinogen Ur Leukocyte Esterase Urine Microscopic RBC Urine Microscopic WBC Ur Squamous Epith Cells Ur Transition Epith Cell Hyaline Casts Urine Mucus Urine Opiates Screen Ur Oxycodone Screen Urine Methadone Screen Ur Propoxyphene Screen Ur Barbiturates Screen U Tricyclic Antidepress Ur Phencyclidine Scrn Ur Amphetamine Screen U Methamphetamines Scrn U Benzodiazepines Scrn Urine Cocaine Screen U Cannabinoids Screen Influ A Molecular Assay Influ B Molecular Assay Orders Category Date Time Status ADMIT PATIENT INPATIENT .TO [facility] (MONITORED BED) ADMISSION 07/04/19 20:22 Active ABG DRAW REQUEST Stat CARDIO 07/04/19 20:14 Completed EKG-(ED ONLY) Stat CARDIO 07/04/19 18:31 Completed ACTIVITY .Complete BR CARE 07/04/19 20:23 Active GIVE HS SNACK 2100 CARE 07/04/19 20:23 Active INTAKE & OUTPUT Q8HR CARE 07/04/19 20:23 Active NEUROLOGICAL CHECKS Q2HR CARE 07/04/19 20:23 Active NPO REMINDER: IMAGING ONCE CARE 07/05/19 08:20 Completed PHARMACIST CONSULT ONCE CARE 07/04/19 22:01 Active TELEMETRY MONITORING TELE CARE 07/04/19 20:22 Active VITAL SIGNS Q8HR CARE 07/04/19 20:23 Active HS SNACK DIETARY 07/04/19 Dinner Ordered SOFT LOW FIBER DIETARY 07/05/19 Breakfast Ordered ED IV/MEDIPORT/POWERPORT .ONCE EMERGENCY 07/04/19 20:21 Active IV [ED IV/MEDIPORT/POWERPORT] .ONCE EMERGENCY 07/04/19 18:31 Active ABG Stat LAB 07/04/19 19:30 Completed AMMONIA Stat LAB 07/04/19 18:57 Completed BLOOD CULTURE (ED ONLY) Stat LAB 07/04/19 19:12 Received CBC W/ AUTO DIFF DAILY@0600 LAB 07/05/19 04:15 Completed CBC W/ AUTO DIFF DAILY@0600 LAB 07/06/19 06:00 Ordered CBC W/ AUTO DIFF Stat LAB 07/04/19 18:57 Completed CMP [COMPREHENSIVE METABOLIC PANEL] Stat LAB 07/04/19 18:57 Completed COMPREHENSIVE METABOLIC PANEL DAILY@0600 LAB 07/05/19 04:15 Completed COMPREHENSIVE METABOLIC PANEL DAILY@0600 LAB 07/06/19 06:00 Ordered FLU A & B MOLECULAR [FLU A/B MOLECULAR] Stat LAB 07/04/19 18:37 Completed UA [URINALYSIS C & S IF INDICATED] Stat LAB 07/04/19 19:30 Completed URINE DRUG SCREEN (RAPID FOR ED) [DRUG SCREEN, URINE, LAB 07/04/19 19:30 Completed RAPID] Stat 0.9 % Sodium Chloride [Saline Flush] MEDS 07/04/19 20:21 Active 1 syr IVF PRN PRN Amitriptyline HCl [Elavil] MEDS 07/05/19 21:00 Ordered 100 mg PO BEDTIME Diazepam [Valium] MEDS 07/05/19 05:00 Discontinued 10 mg PO Q8HR Diazepam [Valium] MEDS 07/05/19 13:00 Discontinued 10 mg PO Q8HR Divalproex Sodium [Depakote] MEDS 07/04/19 21:00 Discontinued 250 mg PO BID Donepezil HCl [Aricept] MEDS 07/05/19 09:00 Discontinued 10 mg PO DAILY Duloxetine HCl [Cymbalta] MEDS 07/06/19 09:00 Ordered 60 mg PO DAILY Enoxaparin Sodium [Lovenox] MEDS 07/05/19 09:00 Active 30 mg SUBCUT DAILY Ergocalciferol (Vitamin D2) [Drisdol] MEDS 07/10/19 09:00 Ordered 50,000 unit PO WEEKLY Hydrochlorothiazide MEDS 07/06/19 09:00 Ordered 25 mg PO DAILY Linaclotide [Linzess] MEDS 07/05/19 09:00 Active 145 mcg PO DAILY Lisinopril [Zestril] MEDS 07/06/19 09:00 Ordered 10 mg PO DAILY Morphine Sulfate [Morphine 2 mg/ml Syringe] MEDS 07/04/19 23:23 Active 1 mg IVP Q4H PRN Omeprazole [Prilosec] MEDS 07/05/19 09:00 Active 20 mg PO DAILY Potassium Chloride in 0.9%NaCl [Sodium Chloride 0.9%- MEDS 07/05/19 08:00 Active KCl 20 Meq] 1,000 ml IV 83 mls/hr Prazosin HCl [Minipress] MEDS 07/04/19 21:00 Discontinued 5 mg PO BEDTIME Sertraline HCl [Zoloft] MEDS 07/05/19 09:00 Discontinued 200 mg PO DAILY Sodium Chloride 0.9% [Sodium Chloride] 1,000 ml MEDS 07/04/19 20:21 Discontinued IV 100 mls/hr Sodium Chloride 0.9% [Sodium Chloride] 1,000 ml MEDS 07/04/19 19:13 Discontinued IV ONCE Sumatriptan Succinate [Imitrex] MEDS 07/05/19 11:21 Ordered 100 mg PO DAILY PRN tizanidine MEDS 07/05/19 11:21 Ordered 4 mg PO Q8H PRN RESUSCITATION STATUS Routine OTHERS 07/04/19 20:23 Ordered CHEST, 1V AP ONLY Stat RADS 07/04/19 18:[address] ABDOMEN/PELVIS W CONTRAST Routine RADS 07/05/19 08:[address] CHEST W/CONTRAST Routine RADS 07/05/19 08:[address] HEAD W/O CONTRAST Stat RADS 07/04/19 18:31 Completed U/S AORTA ABDOMINAL Routine RADS 07/05/19 08:19 Ordered PT CONSULT Routine THERAPIES 07/04/19 Ordered Medications Generic Name Dose Route Start Last Admin Trade Name Freq PRN Reason Stop Dose Admin Amitriptyline HCl 100 mg 07/05/19 21:00 Elavil PO BEDTIME ERNA Duloxetine HCl 60 mg 07/06/19 09:00 Cymbalta PO DAILY ERNA Enoxaparin Sodium 30 mg 07/05/19 09:00 Lovenox SUBCUT DAILY ERNA Ergocalciferol 50,000 unit 07/10/19 09:00 Drisdol PO WEEKLY ERNA Hydrochlorothiazide 25 mg 07/06/19 09:00 Hydrochlorothiazide PO DAILY COUNT INCLUDES THE [facility] Potassium Chloride/Sodium Chloride 1,000 mls @ 83 mls/hr 07/05/19 08:00 07/05/19 07:35 Sodium Chloride 0.9%-Kcl 20 Meq IV 83 mls/hr .Q12H3M ERNA Administration Linaclotide 145 mcg 07/05/19 09:00 Linzess PO DAILY ERNA Lisinopril 10 mg 07/06/19 09:00 Zestril PO DAILY COUNT INCLUDES THE [facility] Morphine Sulfate 1 mg 07/04/19 23:23 07/05/19 04:48 Morphine 2 Mg/Ml Syringe IVP 1 mg Q4H PRN Administration Pain Non-Formulary Medication 4 mg 07/05/19 11:21 Tizanidine PO Q8H PRN MUSCLE SPASMS Omeprazole 20 mg 07/05/19 09:00 Prilosec PO DAILY COUNT INCLUDES [facility] Sodium Chloride 1 syr 07/04/19 20:21 Saline Flush IVF PRN PRN To flush IV Sumatriptan Succinate 100 mg 07/05/19 11:21 Imitrex PO DAILY PRN HEADACHE Discontinued Medications Generic Name Dose Route Start Last Admin Trade Name Freq PRN Reason Stop Dose Admin Diazepam 10 mg 07/05/19 05:00 07/05/19 05:07 Valium PO 10 mg Q8HR ERNA Administration Diazepam 10 mg 07/05/19 13:00 Valium PO Q8HR ERNA Divalproex Sodium 250 mg 07/04/19 21:00 07/05/19 11:25 Depakote PO Not Given BID COUNT INCLUDES THE [facility] Donepezil HCl 10 mg 07/05/19 09:00 07/05/19 11:24 Aricept PO Not Given DAILY ERNA Sodium Chloride 1,000 mls @ 125 mls/hr 07/04/19 19:13 07/04/19 21:46 Sodium Chloride IV 07/05/19 03:12 Not Given ONCE ONE Sodium Chloride 1,000 mls @ 100 mls/hr 07/04/19 20:21 07/04/19 21:47 Sodium Chloride IV 07/05/19 06:20 100 mls/hr .Q10H STA Administration Prazosin HCl 5 mg 07/04/19 21:00 07/04/19 21:55 Minipress PO Not Given BEDTIME ERNA Sertraline HCl 200 mg 07/05/19 09:00 07/05/19 11:25 Zoloft PO Not Given DAILY ERNA Assessment (1) Tobacco dependence due to cigarettes: Status: Acute Code(s): F17.210 - Nicotine dependence, cigarettes, uncomplicated SNOMED Code(s): 21060960188466364 (2) HTN (hypertension), benign: Status: Acute Code(s): I10 - Essential (primary) hypertension SNOMED Code(s): 09109307 (3) Chronic pain disorder: Status: Acute Code(s): G89.4 - Chronic pain syndrome SNOMED Code(s): 378867499 (4) Encephalopathy: Status: Acute Code(s): G93.40 - Encephalopathy, unspecified SNOMED Code(s): 21931456 (5) Dementia: Status: Acute Code(s): F03.90 - Unspecified dementia without behavioral disturbance SNOMED Code(s): 20233703 (6) S/P total knee arthroplasty: Status: Acute Code(s): Z96.659 - Presence of unspecified artificial knee joint SNOMED Code(s): 431733384 Plan Plan: encephalopathy, unclear etiology - possibly related to medications vs TIA vs seizure vs worsening dementia -reported to be lethargic on admission to emergency department; pt not given narcan per record -pt reported to be agitated last night on admission; more calm and cooperative today -CT head wo negative for anything acute; pt had no obvious signs of trauma on admission; no hx of seizures but pt was not observed prior to admission, possibly could have experienced seizure activity as she was incontinent when she was found; hx prev TIA; order MRI dementia -previously taking aricept but discontinued on her own depression/anxiety -prev med list with zoloft and seroquel. son states these were prescribed after pts suicide attempt but she is no longer taking these medications -anxious with agitation on admission; now calm and cooperative; cont to monitor -currently holding all sedating medications; will add back as needed mild hypokalemia noted; supplementing; monitor BMP mild dehydration; gentle hydration; monitor BMP possible overdose of medications -UDS positive for benzos, opioids, THC aligning with pts known home medications -unclear if pt took all 6 baclofen at once with/and/or other medications prior to admission -holding all sedating medications currently -check TSH, vit b12; may benefit from outpt EEG abdominal pain -prev hx of 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 calcifications with tortuosity of the abdominal aorta most pronounced distally. measures up to 2.1 cm in diameter proximally. minimal distension of loops of bowel in the upper abdomen which could be related to enteritis or ileus without a discrete transition point to suggest bowel obstruction at this time. moderate amount of stool within the colon. no free intra-abdominal air or fluid. marked multilevel degenerative change most pronouced at L2/L3; post op change with attempted fusion at the right sacroiliac joint. foci of sclerosis within the femoral heads bilaterally may represent small regions of osteonecrosis without collapase. -unclear if/when pt last had colonoscopy; would benefit as outpt -bilateral osteonecrosis of femoral stage 2, asymptomatic; needs f/u with ortho outpt to assess if surgical intervention is warranted possible opioid induced constipation, chronic vs chronic idiopathic constipation -hx previously on linzess; taking laxatives at home per family report -cont hydration; resume linzess abnormal CXR -CT chest shows enhancement of thyroid gland with several low attenuation nodules in the right and left lobes with asymmetric enlargement of the right lobe suggesting multinodular goiter. vascular calcifications of thoracic aorta without evidence of of an aneurysm. hiatal hernia containing portions of the stomach 6.0 x 5.5 x 5.2 cm, accounting for abnormality of recent chest radiograph medially within the lung base -order TSH, free T4 chronic pain with opioid dependence -per family report pt on opiods for years; also takes benzodiazipines and uses marijuana -[place] 29 opioid prescriptions from 4 doctors and 3 pharmacies over past 12 months -previously seen by pain management; currently with no PCP -consult case management for assistance in helping pt secure care HTN -BP slightly elevated. pt didn't take meds today. will resume in am -labetalolo with parameters prn tobacco dependence -nicotine patch available to pt -unclear if she wants to stop smoking DVT PPx: lovenox GI PPx: famotidine CODE: full - son states pt has no advance directive that he is aware of but feels she would want to be resuscitated
[2019-07-05] MEDS ORDERED: ZANAFLEX PO PRN (13:08)
[2019-07-05] MEDS ORDERED: TRANDATE IVP PRN (15:42)
[2019-07-05] MEDS ORDERED: TYLENOL PO PRN (16:44)
[2019-07-05] MEDS ORDERED: PEPCID ONE ×2 (16:53→22:08)
[2019-07-05] MEDS: COLACE PO SCH ×2 (17:05→19:59)
[2019-07-05] MEDS: PEPCID 20 MG in SODIUM CHLORIDE 50 ML IV SCH ×2 (17:06→22:14)
[2019-07-05] MEDS: NICODERM 14 MG TD SCH (17:06)
[2019-07-05] MEDS: LOVENOX SUBCUT SCH (17:09)
[2019-07-05] MEDS: ELAVIL PO SCH (19:59)
[2019-07-06 04:51] LABS: HEMATOCRIT 33.5 % (37.0-47.0)
[2019-07-06] MEDS ORDERED: ZESTRIL PO SCH (09:00)
[2019-07-06] MEDS: LINZESS PO SCH (11:14)
[2019-07-06] MEDS: CALCIUM 500 + VIT D 200 MG TABLET PO SCH ×3 (11:14→20:53)
[2019-07-06] MEDS: SODIUM CHLORIDE 0.9%-KCL 20 MEQ 1,000 ML IV SCH ×2 (11:15→23:38)
[2019-07-06] MEDS: PEPCID 20 MG in SODIUM CHLORIDE 50 ML IV SCH ×2 (11:15→20:53)
--- NOTE | 2019-07-06 11:53 | MRI ---
EXAM: MRI brain with and without contrast. Date: 07/06/2019 COMPARISON: None. HISTORY: Confusion. TECHNIQUE: Routine MR images of the brain were obtained before and after the intravenous administrat ion of 14 mL of Dotarem via the left hand IV FINDINGS: No intracranial mass, mass effect, hemorrhage, or abnormal extra-axial fluid collection. The ventricles and subarachnoid spaces are not enlarged. There is a faint focus of restricted diffus ion in the right side of the shannan likely representing a small acute lacunar infarct. Chronic small la cunar infarcts seen in the left-sided mid brain and the left putamen. There are periventricular and subcortical white matter T2 hyperintensities that are nonspecific and most likely represent small ves marivel disease. No pituitary, pineal, or cerebellopontine angle lesion seen. The craniocervical juncti on appears normal. Visualized orbital structures are normal. There is mild mucosal thickening seen in the ethmoid sinuses and maxillary sinuses. No fluid in the middle ear cavities or mastoid air cell s. No abnormal enhancement. IMPRESSION: 1. Small acute lacunar infarct in the right side of the shannan. 2. Periventricular and subcortical white matter T2 hyperintensities that are nonspecific and most li al represent small vessel disease. Findings called to the patient's nurse, Fabby CHASE, at 11:26 a.m. central time zone.
--- NOTE | 2019-07-06 12:08 | US ---
EXAM: Ultrasound thyroid. HISTORY: Goiter. COMPARISON: Chest CT 07/05/2019. TECHNIQUE: Chou-scale and color Doppler images. FINDINGS: The right lobe of the thyroid measures 4.1 x 2.2 x 2 cm. Multiple nodules are present. The largest nodule measures 1.1 x 0.9 x 0.6 cm in the superior aspect which is circumscribed and mixed solid and cystic. Other nodules appear similar. The thyroid isthmus measures 0.3 cm. The left lobe of the thyroid measures 3.6 x 1.5 x 1.7 cm. Multiple nodules are present with the larg est measuring 1 x 0.8 x 0.8 cm which is cystic. Additional solid cystic nodules are seen, similar in size and appearance to the contralateral side. IMPRESSION: Multinodular goiter.
[2019-07-06] MEDS: CYMBALTA PO SCH (12:23)
[2019-07-06] MEDS: HYDROCHLOROTHIAZIDE PO SCH (12:24)
[2019-07-06] MEDS: COLACE PO SCH ×2 (12:24→20:53)
[2019-07-06] MEDS: LOVENOX SUBCUT SCH ×2 (12:36→12:46)
[2019-07-06] MEDS: NICODERM 14 MG TD SCH (12:46)
--- NOTE | 2019-07-06 15:00 | PCM.PROG ---
Date Seen by Provider: 07/06/19 Time Seen by Provider: 08:17 Subjective: pt seated in bed this morning. she is awake and alert. she is able to speak in more complete sentences today. she doesn't remember much about the last 2 days. she doesn't remember being found down in her home or taking the baclofen. she hasn't complained of pain to her back/hips. she did tell nurse this am that she had a headache and took ther sumatriptan. pt is now agreeing to take her po meds. she is very calm and cooperative today. she has been continent of bowel and bladder today. she states she has had 2 soft formed stools. she admits she has had problems with constipation in the past and the linzess worked well for her but it was cost prohibitive. states she thinks she was told that she couldn't go to the [facility] because of her marijuana card. states she doesn't want to go back to pain management in [place]. she admits that her memory is very bad and she has had problems with memory for "some years" and it seems to be getting worse. she states she did have a stroke about 3 years ago. Objective: Vitals: T=98.0 F, P=95, R=16, RJ=946/94, SPO2=96 HEENT: [PERRLA, EOMs intact, no icterus or conjunctivitis] Neck: [supple FROM] Lungs: [CTA bilaterally] CVS: [RRR, S1 S2] Abdomen: [soft non tender no HSM] Extremities: [normal radial and pedal pulses; FROM] Neurological: [alert oriented to self place; still with memory issues; CN 2 -12 grossly intact] Skin: [warm dry no lesions or rash] Lab/Tests/Diagnostic Imaging: EXAM: MRI brain with and without contrast. Date: 07/06/2019 COMPARISON: None. HISTORY: Confusion. FINDINGS: No intracranial mass, mass effect, hemorrhage, or abnormal extra- axial fluid collection. The ventricles and subarachnoid spaces are not enlarged. There is a faint focus of restricted diffusion in the right side of the shannan likely representing a small acute lacunar infarct. Chronic small lacunar infarcts seen in the left-sided mid brain and the left putamen. There are periventricular and subcortical white matter T2 hyperintensities that are nonspecific and most likely represent small vessel disease. No pituitary, pineal, or cerebellopontine angle lesion seen. EXAM: Ultrasound thyroid. HISTORY: Goiter. COMPARISON: Chest CT 07/05/2019. FINDINGS: The right lobe of the thyroid measures 4.1 x 2.2 x 2 cm. Multiple nodules are present. The largest nodule measures 1.1 x 0.9 x 0.6 cm in the superior aspect which is circumscribed and mixed solid and cystic. Other nodules appear similar. The thyroid isthmus measures 0.3 cm. The left lobe of the thyroid measures 3.6 x 1.5 x 1.7 cm. Multiple nodules are present with the largest measuring 1 x 0.8 x 0.8 cm which is cystic. Additional solid cystic nodules are seen, similar in size and appearance to the contralater al side. Multinodular goiter. (1) Tobacco dependence due to cigarettes: Status: Acute Code(s): F17.210 - Nicotine dependence, cigarettes, uncomplicated SNOMED Code(s): 20129912926112325 (2) HTN (hypertension), benign: Status: Acute Code(s): I10 - Essential (primary) hypertension SNOMED Code(s): 13721425 (3) Chronic pain disorder: Status: Acute Code(s): G89.4 - Chronic pain syndrome SNOMED Code(s): 703289498 (4) Dementia: Status: Acute Code(s): F03.90 - Unspecified dementia without behavioral disturbance SNOMED Code(s): 94890716 (5) S/P total knee arthroplasty: Status: Acute Code(s): Z96.659 - Presence of unspecified artificial knee joint SNOMED Code(s): 504664052 (6) Acute lacunar stroke: Status: Acute Code(s): I63.81 - Other cerebral infarction due to occlusion or stenosis of small artery SNOMED Code(s): 202440081 (7) Encephalopathy acute: Status: Acute Code(s): G93.40 - Encephalopathy, unspecified SNOMED Code(s): 3208935 (8) Nontoxic multinodular goiter: Status: Acute Code(s): E04.2 - Nontoxic multinodular goiter SNOMED Code(s): 06874159 (9) Other osteonecrosis, left femur: Status: Acute Code(s): M87.852 - Other osteonecrosis, left femur SNOMED Code(s): 663515551 (10) Other osteonecrosis, right femur: Status: Acute Code(s): M87.851 - Other osteonecrosis, right femur SNOMED Code(s): 736058602 (11) Hypokalemia, inadequate intake: Status: Acute Code(s): E87.6 - Hypokalemia SNOMED Code(s): 86887683 Plan: acute small lacunar infarct area of shannan per MRI -pt outside window for thrombolytic intervention -will cont ASA and start on statin -prev small infarcts and small vessel disease also noted acute encephalopathy, unclear etiology, resolved; likely related to new acute lacunar infarct -MRI confirms small acute lacunar infarct in shannan, previous small infarcts and chronic small vessel disease -cannot rule out influence of medications as pt possibly took too much of the baclofen -pt has remained calm and cooperative overnight -CT head wo negative for anything acute; pt had no obvious signs of trauma on admission; no hx of seizures but pt was not observed prior to admission, possibly could have experienced seizure activity as she was incontinent when she was found; hx prev TIA multinodular goiter -non toxic non obstructive -TSH, Free T2 within normal limits -B12 slightly low at 181, folate normal 9.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 -pt currently asymptomatic; no hx of steroid therapy; no hx alcoholism -incidental finding on CT abd/pelvis performed due to pts abdominal pain -pt with hx osteoporosis receiving prolia injections every 6 mos at bone/joint specialist in [place] -f/u with bone specialist and/or orthopedist for definitive care possible unintentional overdose of home medications -UDS positive for benzos, opioids, THC which are part of pts home medication list -unclear if she took 6 baclofens and/or other medications on the day she was found down in her home -pt requires assistance with taking her medications due to her memory issues to make sure she takes them properly -all sedating medications continue to be held abdominal pain, resolved -noted hiatal hernia containing portion of the stomach 6.0 x 5.5 x 5.2 cm -abdominal pain seemed to be relieved after pt evacuated bowel -continue stool softner and linzess -hx pulsative mass and prev aorta ultrasound 05/21 with normal caliber to vessels; no repeat US done -pt states had colonoscopy in past and is due for repeat now; will f/u with PCP chronic opioid induced constipation -continue stool softner and linzess. -pt states linzess works well but it was cost prohibitive; will f/u with PCP to see if there is pt assistance for medication; adjust/change medication hx chronic pain with chronic opioid use -pt hasn't c/o of any pain during her stay so far. she hasn't received her home hydrocodone opioid dependence -pt hasn't complained of pain and hasn't requested pain meds so far during her stay; watch for possible withdrawal -pt was also taking benzodiazipines and using medical marijuana -pt on hydrocodone for years per her report and family report. states she doesn't want to go back to pain management "they just give you pills" -[place] 29 [place] rx from 4 doctors and 3 pharmacies in past 12 mos; discussed with pt and she said "they was all ordered by the doctor. she appeared not to understand the problem with running out too early due to taking too many pills, then, going to a different doctor to get more pills. -discuss with PCP at f/u Essential HTN -stable but slightly elevated; pt started back on her home lisinopril 10mg daily -BP still not well controlled will increase lisinopril to 20mg daily; monitor -cont prn labetalol with parameters dementia -per record and pts sister she has previously taken aricept. pt states she doesn't remember taking this medication. -feels dementia is inevitable due to her mother having alzheimers disease depression/anxiety -pt currently lists amitriptyline and duloxetine on home med list; these have been held so far. will resume on 07/06 -prev med list with zoloft and seroquel. son states these were prescribed after pts suicide attempt but she is no longer taking these medications mild hypokalemia noted -supplement as needed; monitor BMP mild dehydration, resolved -IV fluids discontinued; pt eating and drinking well tobacco dependence -nicotine patch available to pt -unclear if she wants to stop smoking DVT PPx: lovenox GI PPx: famotidine CODE: full - son states pt has no advance directive that he is aware of but feels she would want to be resuscitated
[2019-07-06] MEDS ORDERED: PEPCID ONE (20:46)
[2019-07-06] MEDS: ELAVIL PO SCH (20:52)
[2019-07-06] MEDS ORDERED: LIPITOR PO SCH (21:00)
[2019-07-07 05:21] VITALS: BP 134/72; TEMP 97.9
[2019-07-07] MEDS ORDERED: ASPIRIN EC PO SCH (08:00)
[2019-07-07] MEDS: CYMBALTA PO SCH (08:13)
[2019-07-07] MEDS: CALCIUM 500 + VIT D 200 MG TABLET PO SCH (08:13)
[2019-07-07] MEDS: LINZESS PO SCH (08:13)
[2019-07-07] MEDS: COLACE PO SCH (08:13)
[2019-07-07] MEDS: LOVENOX SUBCUT SCH (08:14)
[2019-07-07] MEDS: HYDROCHLOROTHIAZIDE PO SCH (08:14)
[2019-07-07] MEDS: PEPCID 20 MG in SODIUM CHLORIDE 50 ML IV SCH (08:14)
[2019-07-07] MEDS ORDERED: ZESTRIL PO SCH (09:00)
--- NOTE | 2019-07-07 10:54 | PCM.DC ---
Final Diagnosis: primary: encephalopathy, acute small lacunar infarct, acute multinodular goiter osteonecrosis bilateral femoral heads, asymptomatic polypharmacy secondary: chronic pain disorder dementia tobacco dependence HTN opioid dependance (1) Tobacco dependence due to cigarettes: Status: Acute Code(s): F17.210 - Nicotine dependence, cigarettes, uncomplicated SNOMED Code(s): 55856034167395525 (2) HTN (hypertension), benign: Status: Acute Code(s): I10 - Essential (primary) hypertension SNOMED Code(s): 26424936 (3) Chronic pain disorder: Status: Acute Code(s): G89.4 - Chronic pain syndrome SNOMED Code(s): 256901059 (4) Dementia: Status: Acute Code(s): F03.90 - Unspecified dementia without behavioral disturbance SNOMED Code(s): 13191151 (5) Acute lacunar stroke: Status: Acute Code(s): I63.81 - Other cerebral infarction due to occlusion or stenosis of small artery SNOMED Code(s): 904460806 (6) Encephalopathy acute: Status: Acute Code(s): G93.40 - Encephalopathy, unspecified SNOMED Code(s): 5361568 (7) Nontoxic multinodular goiter: Status: Acute Code(s): E04.2 - Nontoxic multinodular goiter SNOMED Code(s): 52120013 (8) Other osteonecrosis, left femur: Status: Acute Code(s): M87.852 - Other osteonecrosis, left femur SNOMED Code(s): 326851069 (9) Other osteonecrosis, right femur: Status: Acute Code(s): M87.851 - Other osteonecrosis, right femur SNOMED Code(s): 467934620 (10) Hypokalemia, inadequate intake: Status: Acute Code(s): E87.6 - Hypokalemia SNOMED Code(s): 14221704 (11) Polypharmacy: Status: Acute Code(s): Z79.899 - Other nursing home (current) drug therapy SNOMED Code(s): 604292116 Reason for Hospitalization: Encephalopathy, acute, unknown etiology. pt found down at her home unknown time frame lethargic and with possible unintentional overdose of her new rx for baclofen obtained about 20 hours prior to being found down. please see full H&P for details. Prognosis at Discharge: good Condition at Discharge: recoverd; hemodynamically stable; deemed safe for discharge. Medications at Discharge: Ambulatory Orders Medication Instructions Recorded Linzess 145 mcg PO DAILY 04/26/15 omeprazole 20 mg PO DAILY 04/26/15 amitriptyline 100 mg PO BEDTIME 07/05/19 duloxetine 60 mg PO DAILY 07/05/19 sumatriptan succinate 100 mg PO DAILY PRN 07/05/19 tizanidine 4 mg PO Q8H PRN 07/05/19 aspirin 325 mg PO DAILYWM #30 tab 07/07/19 atorvastatin 20 mg PO BEDTIME #30 tab 07/07/19 calcium carbonate-vitamin D3 1 ea PO BID #60 tab 07/07/19 docusate sodium 100 mg PO BID #60 cap 07/07/19 lisinopril 20 mg PO DAILY #30 tab 07/07/19 Lab/Diagnostics: EXAM: CT of the chest with intravenous contrast CT of the abdomen and pelvis with intravenous contrast COMPARISON: Chest radiograph 07/04/2019. CT chest 04/06/2015. CT of the abdomen and pelvis 06/04/2013. HISTORY: Abdominal pain. Abnormal chest radiograph. TECHNIQUE: CT images of the chest, abdomen and pelvis were obtained following the administration of intravenous contrast agent. The oral contrast was not administered. Axial reconstructions with sagittal and coronal reformats were provided. Submitted images are mildly limited by patient motion artifact. FINDINGS: CT chest: Heterogeneous enhancement of the thyroid gland with several low attenuation nodules measuring up to 0.8 cm in size within the right and left lobes of the thyroid with asymmetric enlargement of the of right lobe suggesting multinodular goiter. There are vascular calcifications involving the thoracic aorta and its major branches without evidence of an aneurysm. Heart size is within normal limits without a pericardial effusion. Scattered coronary artery calcifications and aortic valvular calcifications. There are sub-centimeter axillary and mediastinal lymph nodes which are nonpathologic by size criteria. There is a hiatal hernia containing a portion of the stomach measuring 6.0 x 5.5 x 5.2 cm, accounting for the abnormality noted on recent chest radiographs, medially within the lung base. There are mild emphysematous changes of the lungs bilaterally. No focal consolidation within the left lung. No pleural effusion or pneumothorax. Mild degenerative changes of the thoracic spine with dextrocurvature of the spine. Suspected hemangiomas at multiple levels throughout the thoracic spine. Degenerative change of the shoulders bilaterally with vacuum phenomenon at the left glenohumeral joint. CT of the abdomen and pelvis: The liver, spleen, pancreas, gallbladder and adrenal glands are unremarkable appearance. 1.3 x 0.9 cm low attenuation lesion peripherally within the mid right kidney abutting the cortex which may represent a cyst. Limited assessment this region on previous noncontrasted CT 06/04/2013 though this was also likely present at that time. Thinning and scarring of the overlying cortex. 1.1 cm region of low attenuation overlying the anterolateral cortex of the right kidney just anterior to that level not clearly seen on the previous study which could represent some fluid in the perinephric space or small exophytic cyst. There is some ill-defined fluid along the anterior margin of the left kidney. Minimal perinephric stranding bilaterally. No radiopaque renal calculus, hydronephrosis or hydroureter. Moderate distension of the urinary bladder. There are calcifications with tortuosity of the abdominal aorta most pronounced distally. The abdominal aorta measures up to 2.1 cm in diameter proximally. No retroperitoneal hematoma. No pathologically enlarged intra-abdominal or intrapelvic lymph nodes. There is limited assessment of the bowel due to lack of enteric contrast. Scattered air-fluid levels. Minimal distension of loops of bowel in the upper abdomen which could be related enteritis or ileus without a discrete transition point to suggest bowel obstruction at this time. There is a moderate amount of stool within the colon. Small tubular structure in a retrocecal location suggest a normal caliber appendix without definite evidence of acute appendicitis. No free intra-abdominal air or fluid. Levocurvature of the spine with marked multilevel degenerative change most pronounced L2/L3. Suspected benign hemangiomas throughout the lumbar spine. Postoperative change with attempted fusion at the right sacroiliac joint. Foci of sclerosis within the femoral heads bilaterally may represent small regions of osteonecrosis without collapse. The final report was faxed to the radiology department and emergency room at 9:56 a.m. on 07/05/2019. IMPRESSION: CT chest: 1. Moderate sized hiatal hernia containing a portion of the stomach and accounting for the abnormality on recent chest radiographs. 2. No focal consolidation. 3. Atherosclerotic vascular disease. Degenerative changes of the spine. 4. Mild emphysematous changes. 5. Multinodular goiter. CT of the abdomen and pelvis: 1. Scattered air-fluid levels with minimally distended loops of bowel in the upper abdomen which could be related mild enteritis or ileus. No transition point to suggest bowel obstruction at this time. Correlate clinically. Moderate amount of well-formed stool within the colon. 2. Atherosclerotic vascular disease. 3. Minimal perinephric stranding bilaterally with some ill-defined fluid lashaun cent to the kidneys. Cystic change and cortical scarring laterally within the mid right kidney. No hydronephrosis or hydroureter. Moderate distension of the urinary bladder. 4. Multifocal degenerative changes as described. Postoperative change of the right sacroiliac joint. Suspected small foci of osteonecrosis within the femoral heads bilaterally without articular surface collapse. EXAM: MRI brain with and without contrast. Date: 07/06/2019 COMPARISON: None. HISTORY: Confusion. TECHNIQUE: Routine MR images of the brain were obtained before and after the intravenous administration of 14 mL of Dotarem via the left hand IV FINDINGS: No intracranial mass, mass effect, hemorrhage, or abnormal extra- axial fluid collection. The ventricles and subarachnoid spaces are not enlarged. There is a faint focus of restricted diffusion in the right side of the shannan likely representing a small acute lacunar infarct. Chronic small lacunar infarcts seen in the left-sided mid brain and the left putamen. There are periventricular and subcortical white matter T2 hyperintensities that are nonspecific and most likely represent small vessel disease. No pituitary, pin eal, or cerebellopontine angle lesion seen. The craniocervical junction appears normal. Visualized orbital structures are normal. There is mild mucosal thickening seen in the ethmoid sinuses and maxillary sinuses. No fluid in the middle ear cavities or mastoid air cells. No abnormal enhancement. IMPRESSION: 1. Small acute lacunar infarct in the right side of the shannan. 2. Periventricular and subcortical white matter T2 hyperintensities that are nonspecific and most likely represent small vessel disease. EXAM: Ultrasound thyroid. HISTORY: Goiter. COMPARISON: Chest CT 07/05/2019. TECHNIQUE: Chou-scale and color Doppler images. FINDINGS: The right lobe of the thyroid measures 4.1 x 2.2 x 2 cm. Multiple nodules are present. The largest nodule measures 1.1 x 0.9 x 0.6 cm in the superior aspect which is circumscribed and mixed solid and cystic. Other nodules appear similar. The thyroid isthmus measures 0.3 cm. The left lobe of the thyroid measures 3.6 x 1.5 x 1.7 cm. Multiple nodules are present with the largest measuring 1 x 0.8 x 0.8 cm which is cystic. Additional solid cystic nodules are seen, similar in size and appearance to the co ntralateral side. IMPRESSION: Multinodular goiter. Education Provided to Patient and Family: spoke with pts son and sister about need for someone to make sure pt is taking her medications correctly with her memory issues. Follow-ups: spoke with pts son about pt needs to f/u to discuss thyroid condition, osteonecrosis of bones, possibly needing medication for dementia, her possible opioid dependence and polypharmacy and risk factors associated with tobacco abuse and stroke and heart disease. Discharge Disposition: Home Hospital Course: Pt was admitted for acute encephalopathy after being found down in her home by family members. unclear if pt unintentionally overdosed on new rx for baclofen. CT head wo negative for anything acute. CXR with abnormal opacity noted. Initially, pt was reported to be lethargic on arrival to emergency. Unclear if given narcan. Later pt was agitated and refusing to take anything by mouth and refusing telemetry. Nurse assumed some of pts agitation might be rela luther to pain. I was phoned, as it was after hours, and morphine 1mg IV q4hrs prn was ordered and pt given 1 dose. Pt calmed down and was able to rest. Pts home medications were not initially verified as she couldn't give any information. Later pts son called with list from pts medication bottles. These were compared to list previously in our system and appropriate adjustments were made. Pt was not given any further doses of morphine and her home medications that might cause sedation were held. It is learned that pt has hx of possible dementia and previous stroke. CT chest/abd/pelvis done. Pt found to have tenderness on palpation of LLQ and suprapubic area with diffuse tenderness. CT chest revealed moderate sized hiatal hernia containing a portion of stomach, no focal consolidation, and multinodular goiter. CT abd/pelvis reveals suspected small foci of osteonecrosis within bilateral femoral heads without articular surface collapse. MRI brain reveals small acute lacunar infarct in shannan with previous small infarcts and chronic small vessel disease. Ultrasound of thyroid reveals non toxic non obstructive multinodular goiter. TSH, free T4 within normal limits, B12 slightly low and folate normal. Pt is outside the window for thrombolytics. She is placed on ASA 325mg daily and atorvastatin. Pt has hx of likely opioid induced constipation and moderate amount of stool noted on CT scan. Given linzess which she has taken in the past and stool softner with good result and resolution of abdominal pain. pt noted to have mild dehydration and mild hypokalemia. Given gentle hydration with potassium supplementation. Pt BP remained stable. She was continue home BP med. Pt continued on home duloxetine and amitrptyline for depression. Pt not currently on medication for dementia. Pt noted to have TMax 100.9 and an initial elevated wbc. Given tylenol 650mg x 1. BCx x 2 obtianed. wbc elevation resolved with hydration. pt had no further temp elevations. Bcx pending with no growth at time of discharge. UA negative. No other obvious signs of infection noted. Opacity on CXR was not seen on CT scan. Was thought to be the portion of stomach seen pushing into the hiatal hernia. Pt has hx of migraines and did c/o of headache once and was given sumatriptan. Pt had no other c/o pain and was not given her home hydrocodone throughout her stay. She had no obvious signs of withdrawal. Pt noted to have low vit D and has completed a 4 week course of vit D 20367 units; repeat of vit D level wnl; will start maintenance meenu+D; pt also receives prolia q 6 months for osteoporosis. Pt admits and is noted to have severe memory loss. I discussed her polypharmacy with the pt and with her sister. Pts son and sister are advised that pt should not drive and she needs oversight for medication administration. Pt lives alone but her son lives on the same property with her. Son and sister have said they will take a more active role in pts medication administration. Except for her ongoing memory issues, pt has remained afebrile and hemodynamically stable and deemed safe for discharge home with her family. She will f/u on issues raised with thyroid, osteonecrosis, hiatal hernia, dementia, opioid and tobacco dependence, and polypharmacy. She has new rx for ASA, atorvastatin, Meenu+D, stool softner, and linzess.
[2019-07-07] MEDS ORDERED: NICODERM 14 MG TD SCH (12:30)
[2019-07-10] MEDS ORDERED: DRISDOL PO SCH (09:00)
== END 2019-07-07 11:10 | disposition home or self-care (01) | DRG 70 ==
LOC: ED 17:58 → MEDSURG B 21:06
PROVIDERS: ADMIT Nurse Practitioner Family; ATTEND Nurse Practitioner Family
DX: G93.40 Encephalopathy, unspecified; E86.0 Dehydration; I63.81 Other cerebral infarction due to occlusion or stenosis of small artery; F32.9 Major depressive disorder, single episode, unspecified; F11.20 Opioid dependence, uncomplicated; R10.9 Unspecified abdominal pain; K44.9 Diaphragmatic hernia without obstruction or gangrene; M87.852 Other osteonecrosis, left femur; Z79.899 Other long term (current) drug therapy; F17.210 Nicotine dependence, cigarettes, uncomplicated; I10 Essential (primary) hypertension; K59.03 Drug induced constipation; M81.0 Age-related osteoporosis without current pathological fracture; E87.6 Hypokalemia; F41.9 Anxiety disorder, unspecified; F03.90 Unspecified dementia, unspecified severity, without behavioral disturbance, psychotic disturbance, mood disturbance, and anxiety; Z86.73 Personal history of transient ischemic attack (TIA), and cerebral infarction without residual deficits; E04.2 Nontoxic multinodular goiter; R40.4 Transient alteration of awareness; R53.1 Weakness; M19.90 Unspecified osteoarthritis, unspecified site; M54.9 Dorsalgia, unspecified; G89.4 Chronic pain syndrome; M87.851 Other osteonecrosis, right femur

== ENCOUNTER 2021-07-24 15:59 | Observation (INO) ==
--- NOTE | 2021-07-24 17:40 | CT ---
EXAM: CT scan head without contrast. HISTORY: Fall COMPARISON: CT 05/26/2020 TECHNIQUE: Axial scans acquired 5 mm slice thicknesses. Coronal and sagittal sequence completed FINDINGS: Hemorrhage: None. Cerebral Parenchyma: Chou-white matter differentiation is maintained. No effacement cortical sulci. Cerebellum: Normal. Masses/Mass Effect: None. There is no midline shift. Vasculature: Normal. Osseus Structures: Normal. Soft Tissues: Normal. No mastoid effusion. No air-fluid level is seen in the sinuses. IMPRESSION: No acute intracranial finding No intracranial hemorrhage, CVA, cranial fracture, mass or hydrocephalu s is seen. Mild cerebral atrophy and intracranial atherosclerosis cavernous internal carotid arteries All CT scans are performed using dose optimization techniques as appropriate to the performed exam an d include at least one of the following: Automated exposure control, adjustment of the mA and/or kV according t o size, and the use of iterative reconstruction technique.
--- NOTE | 2021-07-24 17:49 | CT ---
Exam: CT of cervical spine without contrast History: Fall, pain Comparison: None Technique: Axial scans acquired at 2 mm slice thicknesses. Coronal and sagittal sequence completed FINDINGS Sagittal sequence shows normal alignment facet joints and the vertebral bodies. There is moderate C5 -C6 , and moderate C6-C7 disc space narrowing. Facet degenerative changes are seen Coronal sequence shows mild dextrocurvature cervical spine with odontoid intact. There are degenerat samir change of the uncovertebral joints lower cervical spine. Axial scans show no evidence of displaced fracture. No acute disc protrusion. Evaluation of the C6- C7 and C7-T1 levels limited due to artifact from shoulder girdle. Facet arthropathy with minimal right and left C4-C5, moderate right and minimal left C5-C6, severe ri ght and moderate left C6-C7 foraminal stenosis. Impression Normal alignment No displaced fracture Facet arthropathy [id number] cervical spine with minimal right and left C4-C5, moderate right and m inimal left C5-6, severe right and moderate left C6-C7 foraminal stenosis All CT scans are performed using dose optimization techniques as appropriate to the performed exam an d include at least one of the following: Automated exposure control, adjustment of the mA and/or kV according t o size, and the use of iterative reconstruction technique.
[2021-07-24 18:03] LABS: BASOPHILS % (AUTO) 0.2 % (0.0-3.0); HEMATOCRIT 38.1 % (37.0-47.0); HEMOGLOBIN 13.1 g/dl (12.0-16.0); IMMATURE GRANULOCYTE % (AUTO) 0.2 % (0.0-5.0); LYMPHOCYTES # (AUTO) 0.3 K/uL (0.60-3.4); LYMPHOCYTES % (AUTO) 3.4 (10.0-50.0); MEAN CORPUSCULAR HEMOGLOBIN 29.8 pg (27.0-31.0); MEAN CORPUSCULAR HGB CONC 34.4 (31.8-35.4); MEAN CORPUSCULAR VOLUME 86.6 fl (81.0-99.0); MONOCYTES # (AUTO) 0.3 K/uL (0.4-2.0); MONOCYTES % (AUTO) 3.3 (0-10); NEUTROPHILS % (AUTO) 92.9 % (42.2-75.2); PLATELET COUNT 144 10^3/uL (140-440); RDW COEFFICIENT OF VARIATION 14.1 % (11.6-14.8); WHITE BLOOD COUNT 9.68 K/ul (4.6-10.2)
[2021-07-24 18:16] LABS: ALANINE AMINOTRANSFERASE 56.4 U/L (0-35); ALBUMIN 4.24 g/dL (3.5-5.0); ASPARTATE AMINO TRANSFERASE 112.2 U/L (14-36); BILIRUBIN,TOTAL 0.69 mg/dL (0.2-1.3); BLOOD UREA NITROGEN 47.4 mg/dL (7-17); CALCIUM 9.09 mg/dL (8.4-10.2); CARBON DIOXIDE 20.6 mmol/L (22-30.0); CHLORIDE 92.6 mmol/L (98-107); GLUCOSE 111.8 mg/dL (74-106); POTASSIUM 2.84 mmol/L (3.5-5.1); SODIUM 129.3 mmol/L (134.5-145); TOTAL PROTEIN 7.27 g/dL (6.3-8.2)
[2021-07-24 18:21] LABS: CREATININE 3.47 mg/dL (0.60-1.30)
[2021-07-24] MEDS ORDERED: LACTATED RINGERS 1,000 ML IV STA (18:23)
[2021-07-24 18:28] LABS: TROPONIN I 0.029 ng/ml (0.0000-0.120)
[2021-07-24 18:46] LABS: THYROID STIMULATING HORMONE 0.315 uIU/L (0.465-4.68)
[2021-07-24] MEDS ORDERED: SODIUM CHLORIDE 1,000 ML IV STA ×2 (20:17)
[2021-07-24] MEDS ORDERED: K-DUR PO ONE ×2 (20:17→23:35)
[2021-07-24 20:30] LABS: BILIRUBIN,URINE Negative (NEGATIVE); CLARITY,URINE Cloudy (CLEAR); COLOR,URINE Yellow (YELLOW); GLUCOSE, URINE (UA) Negative (NEGATIVE); KETONES,URINE Negative (NEGATIVE); LEUKOCYTE ESTERASE ,URINE Negative (NEGATIVE); NITRITE,URINE Negative (NEGATIVE); PH,URINE 5.5 (5-9); PROTEIN,URINE 2+ (NEGATIVE); URINE, BLOOD 3+ (NEGATIVE); UROBILINOGEN,URINE 0.2 (0.2)
[2021-07-24 20:38] LABS: AMORPHOUS SEDIMENT,UR 2+ (NOT PRESENT); BACTERIA,URINE TRACE (NOT PRESENT); HYALINE CASTS, URINE 0-2 (NOT PRESENT)
[2021-07-24 20:57] VITALS: BMI 27.5
--- NOTE | 2021-07-24 23:16 | ED.PDOC ---
General ED Provider: Dr. CHAYA COLON Chief Complaint: Altered Mental Status Stated Complaint: She is somewhat confused per friend. Patient admits to a significant decrease in intake of food and water due to difficulty swallowing. She feels light headed and dizzy when standing. Concerned over dehydration. Hx GERD, has been scoped in the past, says [facility] study. Time Seen by Provider: 07/24/21 16:19 Mode of Arrival: Wheelchair Information Source: Patient Exam Limitations: No limitations Primary Care Provider: MELISSA POTTS MD Nursing and Triage Documentation Reviewed and Agree: Yes Does patient meet sepsis criteria?: No System Inflammatory Response Syndrome: Not Applicable Sepsis Protocol: For patient's 13 years and over: Temp is 96.8 and below OR 101 and greater Pulse >90 BPM Resp >20/minute Acutely Altered Mental Status Are patient's symptoms suggestive of a new infection, such as: -Pneumonia -Skin, Soft Tissue -Endocarditis -UTI -Bone, Joint Infection -Implantable Device -Acute Abdominal Infection -Wound Infection -Meningitis -Blood Stream Catheter Infection -Unknown Neurological Complaint Exam Weakness Complaint/Exam Last Known Well: intermittent symptoms for a week Onset: Gradual Duration: on and off for a week Symptoms Are: Still present Timing: Intermittent Initial Severity: Moderate Current Severity: Moderate Character: Reports Lightheaded, Weak and Dizzy Aggravating: Reports Exertion, Position change and Supine to erect Alleviating: Reports Rest and Lying down Associated Signs and Symptoms: Reports Nausea Cardiac Risk Factors: Reports Hypertension CVA Risk Factors: Reports Hypertension Related Surgical History: Reports None JVD Present: No Carotid Bruit Present: No Nystagmus Present: No Gag Reflex Present: Yes Meningeal Signs Positive: No Focal Weakness: Present None Focal Sensory Loss: Present None Gait: Unsteady Review of Systems Review Of Systems Constitutional: Reports Weakness and Loss of appetite Eyes: Reports No symptoms Ears, Nose, Mouth, Throat: Reports No symptoms Respiratory: Reports No symptoms Cardiac: Reports No symptoms GI: Reports Nausea : Reports No symptoms Musculoskeletal: Reports No symptoms Skin: Reports No symptoms Neurological: Reports No symptoms Endocrine: Reports No symptoms Hematologic/Lymphatic: Reports No symptoms All Other Systems: Reviewed and Negative [facility] Medical History (Updated 07/24/21 @ 20:49 by JANE DUMONT RN) Abnormal TSH Acute arthritis Adnexal mass Anxiety Anxiety and depression Arthritis pain Chronic back pain Chronic GERD Chronic pain Chronic pain disorder CKD (chronic kidney disease) stage 3, GFR 30-59 ml/min Colon cancer screening CVA (cerebral vascular accident) Delusional thoughts Dementia Depression Diverticulitis Diverticulosis Dizziness Dysphagia Elevated blood sugar Elevated BUN Forgetfulness Headache with neurologic deficit HTN (hypertension), benign Hyperlipidemia Imbalance Kidney lesion, [place], right Left flank pain Left hip pain Marijuana use Medical marijuana use Migraine headache Ovarian cyst, bilateral Paraesophageal hernia Polypharmacy Renal cyst, acquired, right TIA (transient ischemic attack) Tobacco dependence due to cigarettes Tobacco use Vision disturbance Visit for screening mammogram Vitamin B12 deficiency Weight gain Family History Mother Dementia, Onset Age: 78 Hypertension, Onset Age: 50 FATHER Unknown family medical history PATERNAL GRANDMOTHER Anxiety Social History (Updated 07/24/21 @ 20:50 by JANE DUMONT RN) Smoking and tobacco status: Current every day smoker Tobacco type: cigarettes Smoking packs per day: 0.5 Tobacco: How many years used: 40 Smoking status stop date: 07/15/21 (PT STATES QUIT WEEK AGO) How long ago did patient quit smoking: Quit last year after stroke, resumed May 2020 Quit status: has quit before Second hand smoke exposure: Yes Smoking risk assessment performed: Yes Alcohol intake: former Counseling given: No Substance use type: marijuana Counseling given: No Izzy/baptism: MANDAEISM Special izzy needs: No Agree to transfusion: Yes Adopted: No Caregiver/support person: Yes Household members: none Housing: house Marital status: D Lives independently: Yes (Son lives next door. ) Number of children: 1 Number of grandchildren: 2 Highest education level completed: high school graduate service: No FCI: No Current occupational status: retired and disabled Current occupational exposures/hazards: No Pets and animals: Yes (2 inside cat) Leisure activites: exercise and reading History of recent travel: No Sexually active: No Do you think of yourself as: straight/heterosexual Current gender identity: female Seatbelt use: always Helmet use: No Drives intoxicated or rides with intoxicated sulky driver: No Water heater temperature set < 120 degrees: Yes Working smoke detector in home: Yes Fire extinguisher in home: Yes Carbon monoxide detector in home: No Firearms in home: No Surgical History History of foot surgery Previous back surgery Female Reproductive History Menstrual Hx Hysterectomy: No Hx Tubal Ligation: No Physical Exam Physical Exam Appearance: Reports Ill-appearing Ill-appearing: Moderate Pain Distress: None Eyes: Reports SHORTY ENT: Reports Oropharynx normal Neck: Supple Respiratory: Reports Airway patent and Breath sounds clear Cardiovascular: Reports RRR and Pulses normal GI/: Reports Soft and Nontender Musculoskeletal: Reports Limited ROM and Limited strength Skin: Reports Warm and Dry Neurological: Reports Sensation intact, Motor intact and Alert Psychiatric: Reports Affect appropriate and Mood appropriate Interpretation Radiology Interpretation Radiology Interpretation By: Radiologist Radiology Results: No acute changes Exam Interpreted: CT Scan Xray Comments: CT head and C-spine, no acute changes EKG Interpretation Time of EKG #1: 18:02 Rate: Normal Rhythm: Sinus [place]: NL ST Segment: Normal Interpretation: WNL Critical Care Note Critical Care Note Total Critical Care Time (mins): 30 Comments: For dehydration and hypotension tx. Course Course Hematology/Chemistry: 07/24/21 18:00 07/24/21 18:00 Orders, Labs, Meds: Lab Review 07/24/21 07/24/21 07/24/21 18:00 18:00 19:35 WBC 9.68 RBC 4.40 Hgb 13.1 Hct 38.1 MCV 86.6 MCH 29.8 MCHC 34.4 RDW Coeff of [place]sys[place] 14.1 Plt Count 144 Immature Gran % (Auto) 0.2 Neut % (Auto) 92.9 H Lymph % (Auto) 3.4 L [place] % (Auto) 3.3 Eos % (Auto) 0.0 Baso % (Auto) 0.2 Neut # (Auto) 9.0 H Lymph # (Auto) 0.3 L [place] # (Auto) 0.3 L Eos # (Auto) 0.0 Baso # (Auto) 0.0 Immature Gran # (Auto) 0.0 Sodium 129.3 L Potassium 2.84 L Chloride 92.6 L Carbon Dioxide 20.6 L Anion Gap 18.94 BUN 47.4 H Creatinine 3.47 H Estimated GFR (MDRD) 13.00 BUN/Creatinine Ratio 13.65 Glucose 111.8 H Calcium 9.09 Total Bilirubin 0.69 AST 112.2 H ALT 56.4 H Alkaline Phosphatase 40.0 L Troponin I 0.029 Total Protein 7.27 Albumin 4.24 Globulin 3.03 Albumin/Globulin Ratio 1.39 TSH 0.315 L SARS-CoV-2 Ag (Rapid) Negative Orders Category Date Time Status EKG-(ED ONLY) Stat CARDIO 07/24/21 17:51 Completed CBC W/ AUTO DIFF Stat LAB 07/24/21 18:00 Completed COMPREHENSIVE METABOLIC PANEL Stat LAB 07/24/21 18:00 Completed COVID-19 ANTIGEN TEST Stat LAB 07/24/21 19:35 Completed THYROID STIMULATING HORMONE Stat LAB 07/24/21 18:00 Completed TROPONIN I Stat LAB 07/24/21 18:00 Completed URINALYSIS C & S IF INDICATED Stat LAB 07/24/21 20:20 Completed Ringers Lactated Solution [Lactated Ringers] 1,000 ml MEDS 07/24/21 18:[address] CERVICAL SPINE W/O CONTRAST Stat RADS 07/24/21 16:[address] HEAD W/O CONTRAST Stat RADS 07/24/21 16:20 Completed Medications Generic Name Dose Route Start Last Admin Trade Name Freq PRN Reason Stop Dose Admin Enoxaparin Sodium 30 mg 07/25/21 09:00 Enoxaparin Sodium 30 Mg/0.3 Ml Syr SUBCUT DAILY ERNA Sodium Chloride 1,000 mls @ 150 mls/hr 07/24/21 20:17 07/24/21 22:23 Sodium Chloride IV 07/25/21 02:56 150 mls/hr .[id number] STA Administration Discontinued Medications Generic Name Dose Route Start Last Admin Trade Name Freq PRN Reason Stop Dose Admin Lactated Ringer's 1,000 mls @ 1,000 mls/hr 07/24/21 18:23 07/24/21 18:46 Lactated Ringers IV 07/24/21 19:22 1,000 mls/hr BOLUS STA Administration Sodium Chloride 1,000 mls @ 1,000 mls/hr 07/24/21 20:17 07/24/21 21:14 Sodium Chloride IV 07/24/21 21:16 1,000 mls/hr BOLUS STA Administration Potassium Chloride 40 meq 07/24/21 20:17 07/24/21 21:35 Potassium Chloride 20 Meq Tab PO 07/24/21 20:18 40 meq ONCE ONE Administration Vital Signs: Temp Pulse Resp BP Pulse Ox 07/24/21 16:06 97.3 F L 72 15 102/61 100 Discharge Plan Discharge Patient Disposition: PLACED OBSERVATION ED Provider: CHAYA COLON Condition: Fair Physician Progress Note: [The decreased fluid intake has caused dehydration with secondary NAM and hypotension. BP around 90 systolic[address] with IVF[address] Place in obs for IVF, recheck labs. She will need follow-up with GI specialist for an EGD. ]
[2021-07-24] MEDS ORDERED: ULTRAM PO PRN (23:32)
[2021-07-24] MEDS ORDERED: ZANAFLEX PO PRN (23:32)
[2021-07-24] MEDS ORDERED: DRISDOL PO SCH (23:45)
[2021-07-25 05:36] LABS: BLOOD UREA NITROGEN 42.7 mg/dL (7-17); CALCIUM 7.84 mg/dL (8.4-10.2); CARBON DIOXIDE 16.8 mmol/L (22-30.0); CHLORIDE 105.5 mmol/L (98-107); CREATININE 2.64 mg/dL (0.60-1.30); GLUCOSE 84.4 mg/dL (74-106); MAGNESIUM 1.65 mg/dL (1.6-2.3); POTASSIUM 3.41 mmol/L (3.5-5.1); SODIUM 131.9 mmol/L (134.5-145)
[2021-07-25] MEDS ORDERED: SYNTHROID PO SCH (06:30)
[2021-07-25] MEDS ORDERED: SODIUM CHLORIDE 1,000 ML IV ONE (07:14)
[2021-07-25] MEDS: ZOLOFT PO SCH (09:18)
[2021-07-25] MEDS: FERROUS SULFATE PO SCH (09:18)
[2021-07-25] MEDS: COLACE PO SCH ×2 (09:19→20:53)
[2021-07-25] MEDS: PROTONIX PO SCH (09:19)
[2021-07-25] MEDS: LOVENOX SUBCUT SCH (09:19)
[2021-07-25] MEDS: PLAVIX PO SCH (09:19)
[2021-07-25] MEDS: SODIUM CHLORIDE 1,000 ML IV SCH ×3 (10:45→23:49)
[2021-07-25] MEDS: ANTIVERT PO SCH (20:53)
[2021-07-26] MEDS: SODIUM CHLORIDE 1,000 ML IV SCH ×2 (05:33→11:49)
[2021-07-26 05:34] LABS: BLOOD UREA NITROGEN 31.5 mg/dL (7-17); CALCIUM 7.55 mg/dL (8.4-10.2); CHLORIDE 110.3 mmol/L (98-107); CREATININE 1.48 mg/dL (0.60-1.30); GLUCOSE 64.2 mg/dL (74-106); POTASSIUM 3.47 mmol/L (3.5-5.1)
[2021-07-26] MEDS: PROTONIX PO SCH (06:02)
--- NOTE | 2021-07-26 06:03 | PCM.PROG ---
07/25/2021 @ 1240 S: mild dizziness. no falls in the hospital O: Pt was sitting comfortably in the room. HEENT: wnl CVS: rrr RESP: chest was clear ABD: benign. MS: no acute abnormality. no ankle edema. PERSONNEL RECORDS CLERK: non-focal A: Mild NAM, continue Tx Push fluids. 2. Dizziness----add Meclizine, after PT review.
[2021-07-26] MEDS ORDERED: IMITREX PO PRN ×2 (07:54→08:00)
[2021-07-26] MEDS ORDERED: K-DUR PO SCH (08:30)
[2021-07-26] MEDS: PLAVIX PO SCH (08:43)
[2021-07-26] MEDS: LOVENOX SUBCUT SCH (08:43)
[2021-07-26] MEDS: ZOLOFT PO SCH (08:44)
[2021-07-26] MEDS: FERROUS SULFATE PO SCH (08:44)
[2021-07-26] MEDS: ANTIVERT PO SCH ×2 (08:44→15:45)
[2021-07-26] MEDS: COLACE PO SCH (08:44)
[2021-07-26] MEDS: ATIVAN PO ONE ×2 (12:51→13:08)
[2021-07-26 14:06] VITALS: BP 167/64; TEMP 97.1
--- NOTE | 2021-07-27 23:37 | PCM.DC ---
Final Diagnosis: Final dx : Dehydration - resolved. Acute kidney injury - resolved. Generalized anxiety disorder. Date of admit - 07/24/21. Date of discharge - 07/26/21. Physical Exam Appearance: Well-appearing Ill-appearing: None Pain Distress: None Eyes: SHORTY ENT: Oropharynx normal Neck: Supple Respiratory: Airway patent and Breath sounds clear Cardiovascular: RRR and Pulses normal GI/: Nontender Musculoskeletal: Normal strength and ROM intact Skin: Warm and Dry Neurological: Sensation intact, Motor intact and Alert Psychiatric: Affect appropriate and Anxious (1) Dehydration: Status: Acute Code(s): E86.0 - Dehydration SNOMED Code(s): 30099300 (2) Acute kidney injury: Status: Acute Code(s): N17.9 - Acute kidney failure, unspecified SNOMED Code(s): 72311400 (3) Generalized anxiety disorder: Status: Acute Code(s): F41.1 - Generalized anxiety disorder SNOMED Code(s): 26349435 Reason for Hospitalization: Dehydration due to poor fluid intake causing mild NAM. Prognosis/Condition at Discharge: Fair. stable. Medications at Discharge: Ambulatory Orders Medication Instructions Recorded pantoprazole 40 mg tablet,delayed 40 mg PO QDAY #90 tab 12/15/20 release docusate sodium 100 mg capsule See Rx Instructions .ROUTE 05/19/21 (DOK) .COMPLEX #60 cap clopidogrel 75 mg tablet See Rx Instructions .ROUTE 06/14/21 .COMPLEX #90 tab atenolol 50 mg tablet 50 mg PO QDAY #30 tab 07/12/21 ergocalciferol (vitamin D2) 1,250 1,250 mcg PO QWEEK 07/12/21 mcg (50,000 unit) capsule ferrous sulfate 325 mg (65 mg 325 mg PO QDAY #90 tab 07/12/21 iron) tablet,delayed release lisinopril 40 mg tablet 40 mg PO QDAY 07/12/21 potassium chloride 20 mEq 20 meq PO QDAY #90 tab 07/12/21 tablet,extended release tizanidine 4 mg tablet 4 mg PO Q6-8H PRN 07/24/21 sumatriptan succinate 100 mg tablet 100 mg PO DIRECTED PRN 07/26/21 acetaminophen 500 mg tablet 1,000 mg PO Q6H PRN tab 07/27/21 (Tylenol Extra Strength) amitriptyline 100 mg tablet 100 mg PO QHS #30 tab 07/27/21 atorvastatin 40 mg tablet (Lipitor) 40 mg PO QDAY 07/27/21 diphenhydramine HCl 25 mg capsule 25 mg PO QHS PRN 07/27/21 (Benadryl) sertraline 100 mg tablet 100 mg PO QDAY #30 tab 07/27/21 Lab/Diagnostics: Laboratory Tests 07/24/21 07/24/21 07/24/21 18:00 18:00 19:35 WBC 9.68 RBC 4.40 Hgb 13.1 Hct 38.1 MCV 86.6 MCH 29.8 MCHC 34.4 RDW Coeff of [place] 14.1 Plt Count 144 Immature Gran % (Auto) 0.2 Neut % (Auto) 92.9 H Lymph % (Auto) 3.4 L [place] % (Auto) 3.3 Eos % (Auto) 0.0 Baso % (Auto) 0.2 Neut # (Auto) 9.0 H Lymph # (Auto) 0.3 L [place] # (Auto) 0.3 L Eos # (Auto) 0.0 Baso # (Auto) 0.0 Immature Gran # (Auto) 0.0 Sodium 129.3 L Potassium 2.84 L Chloride 92.6 L Carbon Dioxide 20.6 L Anion Gap 18.94 BUN 47.4 H Creatinine 3.47 H Estimated GFR (MDRD) 13.00 BUN/Creatinine Ratio 13.65 Glucose 111.8 H Calcium 9.09 Magnesium Total Bilirubin 0.69 AST 112.2 H ALT 56.4 H Alkaline Phosphatase 40.0 L Troponin I 0.029 Total Protein 7.27 Albumin 4.24 Globulin 3.03 Albumin/Globulin Ratio 1.39 TSH 0.315 L Urine Color Urine Clarity Urine pH Ur Specific [place] Urine Protein Urine Glucose (UA) Urine Ketones Urine Blood Urine Nitrite Urine Bilirubin Urine Urobilinogen Ur Leukocyte Esterase Urine Microscopic RBC Ur Squamous Epith Cells Amorphous Sediment Urine Bacteria Hyaline Casts Granular Casts SARS-CoV-2 Ag (Rapid) Negative 07/24/21 07/25/21 07/26/21 20:20 04:49 04:49 WBC RBC Hgb Hct MCV MCH MCHC RDW Coeff of [place] Plt Count Immature Gran % (Auto) Neut % (Auto) Lymph % (Auto) [place] % (Auto) Eos % (Auto) Baso % (Auto) Neut # (Auto) Lymph # (Auto) [place] # (Auto) Eos # (Auto) Baso # (Auto) Immature Gran # (Auto) Sodium 131.9 L 134.0 L Potassium 3.41 L 3.47 L Chloride 105.5 110.3 H Carbon Dioxide 16.8 L 16.0 L Anion Gap 13.01 11.17 BUN 42.7 H 31.5 H Creatinine 2.64 H D 1.48 H D Estimated GFR (MDRD) 18.00 35.00 BUN/Creatinine Ratio 16.17 21.28 Glucose 84.4 64.2 L Calcium 7.84 L 7.55 L Magnesium 1.65 Total Bilirubin AST ALT Alkaline Phosphatase Troponin I Total Protein Albumin Globulin Albumin/Globulin Ratio TSH Urine Color Yellow Urine Clarity Cloudy Urine pH 5.5 Ur Specific [place] 1.020 Urine Protein 2+ H Urine Glucose (UA) Negative Urine Ketones Negative Urine Blood 3+ H Urine Nitrite Negative Urine Bilirubin Negative Urine Urobilinogen 0.2 Ur Leukocyte Esterase Negative Urine Microscopic RBC 5-10 Ur Squamous Epith Cells 2-5 Amorphous Sediment 2+ Urine Bacteria Trace Hyaline Casts 0-2 Granular Casts 5-10 SARS-CoV-2 Ag (Rapid) Follow-ups: PCP within a week. Mental health tomorrow. Discharge Disposition: Home Hospital Course: Admitted with mod dehydration and acute kidney injury secondary to that. Rehydrated and labs improved. On day of d/c became agitated and very anxious. See psychiatry consult. She is medically and mentally cleared to go home after seen by [facility]. Home with family. Discharge summary completed with [id number] exam and total time 45 minutes. Plan: Home with family. F/U with psychiatrist and PCP as planned.
== END 2021-07-26 16:07 | disposition home or self-care (01) ==
LOC: ED 15:59 → MEDSURG A 15:59
PROVIDERS: ADMIT Emergency Medicine; ATTEND Emergency Medicine